=== PATIENT | male | born 1950 | race Caucasian/White ===

== ENCOUNTER 2019-11-10 11:27 | Emergency (ER) | payer OTHER, SELFPAY ==
[2019-11-10] VITALS (9 sets, daily range): BP systolic 86–114; BP diastolic 45–89; PULSE 80–85; RESP 11–18; TEMP 36.6–36.7; O2SAT 92–100; BMI 26.9
--- NOTE | 2019-11-10 | CT_ITS ---
EXAMINATION: CT ABDOMEN AND PELVIS NONCONTRAST CLINICAL INFORMATION: Distention. Evaluate for small bowel obstruction. COMPARISON: CT abdomen and pelvis without and with contrast 10/13/2019, report only, images unavailable. TECHNIQUE: Multidetector volumetric imaging was performed from the superior aspect of the liver through the pubic symphysis without contrast. Sagittal and coronal reformatted images were obtained on the technologist workstation. DOSE LOWERING TECHNIQUES: This CT examination was performed using dose optimization techniques as appropriate, variously including the following: *Automated exposure control *Adjustment of mA and/or kV according to patient size (this includes techniques or standardized protocols for targeted exams where dose is matched to indication/reason for exam; i.e. extremities or head) *Use of iterative reconstruction technique DLP: 632 mGy-cm FINDINGS: LUNG BASES: There are patchy airspace opacities and atelectasis at the bilateral posterior medial bases. Some calcified granulomata are noted right posterior base. Trace fluid right fissure. LIVER, GALLBLADDER, AND BILIARY TREE: The liver is normal in size. There is mild nodular liver surface is noted previously. The parenchyma appears homogeneous. There is no intrahepatic ductal dilatation or visible focal parenchymal lesion. The gallbladder is not well visualized. There is no visible gallstone. Common duct is unremarkable. PANCREAS: Atrophic, otherwise unremarkable. No ductal dilatation or retroperitoneal inflammatory change. SPLEEN: The spleen is enlarged measuring 14.6 cm. Parenchyma is homogeneous. ADRENAL GLANDS: Unremarkable. KIDNEYS AND URETERS: The kidneys are normal in size, shape, and attenuation. No hydronephrosis, hydroureter, or calculi seen. No perinephric stranding. BLADDER: Unremarkable. GASTROINTESTINAL TRACT: There is generalized ascites. No focal loculated fluid collection. There are postsurgical changes with ileocolic anastomosis in region of distal ascending colon. There is small nonobstructing duodenal lipoma third portion as noted previously. There is no bowel obstruction or pneumatosis or free air. No focal inflammatory changes in bowel. Small sliding hiatal hernia. ABDOMINAL WALL: Small infraumbilical ventral hernia containing nonobstructed bowel. LYMPH NODES: No lymphadenopathy. VASCULAR: Unremarkable. PELVIC VISCERA: Unremarkable. OSSEOUS STRUCTURES: There is grade 1-2 spondylolisthesis lumbosacral junction with bilateral L5 spondylolysis and bridging anterior osteophyte. Similar findings noted on prior report. Subchondral cystic changes right anterior medial femoral head. No suspicious bony lesion. IMPRESSION: 1. Generalized ascites. No bowel obstruction or focal inflammatory changes. 2. Nonobstructing bowel containing infra-umbilical ventral hernia. Small nonobstructing duodenal lipoma. 3. Nodular liver/cirrhosis. Splenomegaly, 14.6 cm. 4. Grade 1-2 spondylolisthesis lumbosacral junction with bilateral L5 spondylolysis.
--- NOTE | 2019-11-10 | US_ITS ---
EXAMINATION: ULTRASOUND-GUIDED PARACENTESIS CLINICAL INFORMATION: Ascites COMPARISON: None TECHNIQUE: Procedure and risks and benefits including bleeding, infection and low blood pressure were discussed with the patient and informed consent was obtained. The right lower quadrant was prepped and draped in the usual sterile fashion. The skin and soft tissues were anesthetized with 1% lidocaine plain. Using ultrasound guidance and a 5 Lebanese rapid centesis catheter, access to the ascitic fluid was obtained. 5 L of clear yellow fluid was removed. No diagnostic specimen was sent. Patient received intravenous albumin during the procedure. FINDINGS: There is a large amount of ascites. IMPRESSION: Ultrasound-guided paracentesis.
--- NOTE | 2019-11-10 12:26 | ED_ITS ---
HPI - Abdominal Pain General Chief Complaint: Abdominal Pain Stated Complaint: Fluid in Abdomen Time Seen by Provider: 11/10/19 12:24 Source: patient, EMS and old records reviewed Mode of arrival: EMS Limitations: other (mild confusion) History of Present Illness HPI narrative: pateint with cirrhosis sent by SNF for paracentesis the patient has confusion from recent events and likely chronic encephalopathy, denies pain MD elicited complaint: other (here for ascites) Pertinent past history: other (known cirrhotic with hx of ascites sent over for paracentesis) Onset (ago): day(s) (few days ago) Location: diffuse Severity: mild Related Data Home Medications Medication Instructions Recorded Confirmed Lasix 11/10/19 dronedarone 11/10/19 lactulose 11/10/19 midodrine 11/10/19 potassium chloride 11/10/19 Allergies Allergy/AdvReac Type Severity Reaction Status Date / Time codeine [CODEINE] AdvReac Intermediate GI PAIN, Verified 11/10/19 14:38 abd pain Codeine Sulfate AdvReac Unknown stomach Uncoded 11/10/19 14:38 pains Review of Systems Review of Systems Constitutional : No Weight loss, No Fever, No Chills ENT/Mouth : No sore throat, No Rhinorrhea Eyes: No Eye Pain, No Swelling Cardiovascular : No Chest Pain, No SOB Respiratory : No Cough, No Sputum Gastrointestinal : No Nausea, No Vomiting, positive Diarrhea, No Constipation, No abdominal Pain Genitourinary : No Urinary Frequency, No Hematuria, Musculoskeletal : No joint pain, No Myalgias, No Joint Swelling Skin : No Skin Lesions, No rash Neuro : No Weakness, No Numbness Psych : No Anxiety/Panic, No Depression Heme/Lymph: positive Bruising, No Bleeding Endocrine : No Polyuria, No Polydipsia Physical Exam Vital Signs and I&O and Narrative: Vital Signs and I&O: Vital Signs Temp 98.0 F 11/10/19 12:02 Pulse 82 11/10/19 14:47 Resp 16 11/10/19 14:47 BP 103/62 11/10/19 14:47 Pulse Ox 97 11/10/19 14:47 Intake & Output 11/09/19 11/10/19 11/10/19 18:59 06:59 18:59 Intake Total 500 / 500 Balance 500 / 500 Weight 80.377 kg Intake: Intake, IV Amoun t 500 / 500 0.9 % Sodium C hloride 500 ml @ 500 / 500 1000 mls/hr IV .Q30M [facility] Rx#: [id number] Body Mass Index 26.9 Const: General: cooperative and no acute distress Nutritional Appearance: malnourished Orientation/consciousness: oriented to person, oriented to place and No oriented to time HENMT: Head: Yes normal to inspection Face and sinus: Yes normal facial exam Eyes: Eyelids: Yes eyelids normal Pupils: Equal, round and reactive pupils present Neck: Neck: Yes normal visual inspection and Yes trachea midline Chest: Chest palpation & inspection: normal inspection of the chest Resp: Effort & Inspection: normal respiratory effort and no respiratory distress Auscultation: clear to auscultation bilaterally Cardio: Rate: regular rate Rhythm: regular rhythm GI: Palpation (GI): Soft to palpation, nontender and Ascites present (large) Skin: General skin exam: no rashes or lesions noted Neuro: General: oriented to person, oriented to place and No oriented to time Cranial nerves: Yes CN's II-XII intact bilaterally and Yes Equal, round and reactive pupils present Motor exam (neuro): 5/5 motor strength present throughout Sensory Exam: Normal double simultaneous stimulation for sensation Extrem: General: Yes normal to inspection Psych: Speech and movement: Normal speech and movement present Course Reevaluation(s) Reevaluation #1: labs at baseline at IR receiving paracentesis, albumin was ordered has no pain doubt SBP Reevaluation #2: patient had 5L taken off BP soft after shift, PO midodrine and repeat albumin ordered MDM - Abdominal Pain MDM Narrative Medical decision making narrative: patient with cirrhosis and known ascites other than loose stools he has no complaints, states he might have obstruction, EMS notes he was sent for paracentesis, at this time will obtain labs, paracentesis, CT scan to r/o obstruction, dispo per results and findings Lab Data Result diagrams: 11/10/19 13:27 11/10/19 13:27 Labs: Lab Results 11/10/19 11/10/19 11/10/19 Range/Units 13:27 13:27 13:27 WBC 4.2 L (4.8-10.8) X10*3/uL RBC 3.95 L (4.60-5.80) X10*6/uL Hgb 13.4 L (14.0-18.0) g/dl Hct 39.4 L (42-52) % MCV 99.7 H (80-98) fL MCH 33.9 H (27.0-33.0) pg MCHC 34.0 (31.0-36.0) g/dl RDW 14.8 (11.0-16.0) % Plt Count 62 L (160-400) X10*3/uL MPV 9.4 (9.4-12.4) fL Immature Gran % (Auto) 0.5 H (0.0-0.4) % Neut % (Auto) 59.8 (45-73) % Lymph % (Auto) 27.0 (20-40) % [place] % (Auto) 10.3 (2-11) % Eos % (Auto) 1.7 (0-4) % Baso % (Auto) 0.7 (0-2) % Neut # (Auto) 2.5 (2.0-8.3) X10*3/uL Lymph # (Auto) 1.1 L (1.2-4.9) X10*3/uL [place] # (Auto) 0.4 (0.1-1.2) X10*3/uL Eos # (Auto) 0.1 (0.0-0.4) X10*3/uL Baso # (Auto) 0.0 (0.0-0.2) X10*3/uL Abs Immat Gran (auto) 0.02 (0.00-0.03) X10*3/uL Absolute Nucleated RBC 0.000 (0.0-0.012) X10*3/uL Nucleated RBC % (auto) 0.0 (0.0-0.2) /100WBC PT (10.8-13.0) SEC INR (0.9-1.1) APTT (24.1-38.0) SEC Sodium 133 L (135-145) mmol/L Potassium 3.4 (3.3-5.1) mmol/l Chloride 99 (96-108) mmol/L Carbon Dioxide 26 (22-29) mmol/L Anion Gap 11 L (12-20) BUN 6 L (9-16) mg/dL Creatinine 0.77 (0.5-1.4) mg/dL Estim Creat Clear Calc 87.5 Estimated GFR > 60 Random Glucose 143 H (60-115) mg/dL Lactic Acid 1.9 (0.5-2.0) mmol/L Calcium 8.4 (8.4-10.2) mg/dL Magnesium (1.6-2.6) mg/dL Total Bilirubin 3.0 H (0.0-1.0) mg/dL Direct Bilirubin 1.7 H (0.0-0.5) mg/dL AST 25 (5-37) U/L ALT 11 (0-40) U/L Alkaline Phosphatase 129 H (39-117) U/L Ammonia (13-55) umol/L Total Protein 5.6 L (6.5-8.0) g/dL Albumin 2.9 L (3.5-5.0) g/dL Lipase 18 (8-78) U/L Urine Color Urine Appearance Urine pH (5.0-8.0) Ur Specific [place] (1.005-1.025) Urine Protein (NEG-TRACE) MG/DL Urine Glucose (UA) (NEG) MG/DL Urine Ketones (NEG) MG/DL Urine Blood (NEG) Urine Nitrite (NEG) Ur Leukocyte Esterase (NEG) 11/10/19 11/10/19 11/10/19 Range/Units 13:27 13:27 13:27 WBC (4.8-10.8) X10*3/uL RBC (4.60-5.80) X10*6/uL Hgb (14.0-18.0) g/dl Hct (42-52) % MCV (80-98) fL MCH (27.0-33.0) pg MCHC (31.0-36.0) g/dl RDW (11.0-16.0) % Plt Count (160-400) X10*3/uL MPV (9.4-12.4) fL Immature Gran % (Auto) (0.0-0.4) % Neut % (Auto) (45-73) % Lymph % (Auto) (20-40) % [place] % (Auto) (2-11) % Eos % (Auto) (0-4) % Baso % (Auto) (0-2) % Neut # (Auto) (2.0-8.3) X10*3/uL Lymph # (Auto) (1.2-4.9) X10*3/uL [place] # (Auto) (0.1-1.2) X10*3/uL Eos # (Auto) (0.0-0.4) X10*3/uL Baso # (Auto) (0.0-0.2) X10*3/uL Abs Immat Gran (auto) (0.00-0.03) X10*3/uL Absolute Nucleated RBC (0.0-0.012) X10*3/uL Nucleated RBC % (auto) (0.0-0.2) /100WBC PT 15.6 H (10.8-13.0) SEC INR 1.3 H (0.9-1.1) APTT 39.7 H (24.1-38.0) SEC Sodium (135-145) mmol/L Potassium (3.3-5.1) mmol/l Chloride (96-108) mmol/L Carbon Dioxide (22-29) mmol/L Anion Gap (12-20) BUN (9-16) mg/dL Creatinine (0.5-1.4) mg/dL Estim Creat Clear Calc Estimated GFR Random Glucose (60-115) mg/dL Lactic Acid (0.5-2.0) mmol/L Calcium (8.4-10.2) mg/dL Magnesium 1.7 (1.6-2.6) mg/dL Total Bilirubin (0.0-1.0) mg/dL Direct Bilirubin (0.0-0.5) mg/dL AST (5-37) U/L ALT (0-40) U/L Alkaline Phosphatase (39-117) U/L Ammonia 35 (13-55) umol/L Total Protein (6.5-8.0) g/dL Albumin (3.5-5.0) g/dL Lipase (8-78) U/L Urine Color Urine Appearance Urine pH (5.0-8.0) Ur Specific [place] (1.005-1.025) Urine Protein (NEG-TRACE) MG/DL Urine Glucose (UA) (NEG) MG/DL Urine Ketones (NEG) MG/DL Urine Blood (NEG) Urine Nitrite (NEG) Ur Leukocyte Esterase (NEG) 11/10/19 Range/Units 13:54 WBC (4.8-10.8) X10*3/uL RBC (4.60-5.80) X10*6/uL Hgb (14.0-18.0) g/dl Hct (42-52) % MCV (80-98) fL MCH (27.0-33.0) pg MCHC (31.0-36.0) g/dl RDW (11.0-16.0) % Plt Count (160-400) X10*3/uL MPV (9.4-12.4) fL Immature Gran % (Auto) (0.0-0.4) % Neut % (Auto) (45-73) % Lymph % (Auto) (20-40) % [place] % (Auto) (2-11) % Eos % (Auto) (0-4) % Baso % (Auto) (0-2) % Neut # (Auto) (2.0-8.3) X10*3/uL Lymph # (Auto) (1.2-4.9) X10*3/uL [place] # (Auto) (0.1-1.2) X10*3/uL Eos # (Auto) (0.0-0.4) X10*3/uL Baso # (Auto) (0.0-0.2) X10*3/uL Abs Immat Gran (auto) (0.00-0.03) X10*3/uL Absolute Nucleated RBC (0.0-0.012) X10*3/uL Nucleated RBC % (auto) (0.0-0.2) /100WBC PT (10.8-13.0) SEC INR (0.9-1.1) APTT (24.1-38.0) SEC Sodium (135-145) mmol/L Potassium (3.3-5.1) mmol/l Chloride (96-108) mmol/L Carbon Dioxide (22-29) mmol/L Anion Gap (12-20) BUN (9-16) mg/dL Creatinine (0.5-1.4) mg/dL Estim Creat Clear Calc Estimated GFR Random Glucose (60-115) mg/dL Lactic Acid (0.5-2.0) mmol/L Calcium (8.4-10.2) mg/dL Magnesium (1.6-2.6) mg/dL Total Bilirubin (0.0-1.0) mg/dL Direct Bilirubin (0.0-0.5) mg/dL AST (5-37) U/L ALT (0-40) U/L Alkaline Phosphatase (39-117) U/L Ammonia (13-55) umol/L Total Protein (6.5-8.0) g/dL Albumin (3.5-5.0) g/dL Lipase (8-78) U/L Urine Color YELLOW Urine Appearance CLEAR Urine pH 5.5 (5.0-8.0) Ur Specific [place] 1.015 (1.005-1.025) Urine Protein NEG (NEG-TRACE) MG/DL Urine Glucose (UA) NEG (NEG) MG/DL Urine Ketones NEG (NEG) MG/DL Urine Blood NEG (NEG) Urine Nitrite NEG (NEG) Ur Leukocyte Esterase NEG (NEG) Discharge Plan Discharge Clinical Impression: S/P abdominal paracentesis Ascites Qualifiers: Ascites type: due to alcoholic cirrhosis Qualified Code(s): K70.31 - Alcoholic cirrhosis of liver with ascites Patient Disposition: Xfer [facility] Instructions: Ascites (ED), Paracentesis (DC) Prescriptions: No Action Lasix RF: 0 dronedarone RF: 0 lactulose RF: 0 midodrine RF: 0 potassium chloride RF: 0 PMFSH Past Medical History Attestation statement: The following information was validated with the patient. Medical History Alcohol abuse Dysphagia Liver cirrhosis Muscle atrophy Osteoarthritis Social History Social History Alcohol intake: former Smoked in Last 30 Days: No Use of substances other than those prescribed or required for medical reasons: No Advance Directives: No Advance Directives Information Provided: No
[2019-11-10 13:43] LABS: Basophils Percent Auto 0.7 % (0-2); Eosinophils Absolute Auto 0.1 X10*3/uL (0.0-0.4); Eosinophils Percent Auto 1.7 % (0-4); Hematocrit 39.4 % (42-52); Hemoglobin 13.4 g/dl (14.0-18.0); Imm Gran Abs Auto 0.02 X10*3/uL (0.00-0.03); Imm Gran Pct Auto 0.5 % (0.0-0.4); Lymphocytes Absolute Auto 1.1 X10*3/uL (1.2-4.9); MANUAL DIFF FLAG NO; Mean Corpuscular Hemoglobin 33.9 pg (27.0-33.0); Mean Corpuscular Volume 99.7 fL (80-98); Mean Platelet Volume 9.4 fL (9.4-12.4); Monocytes Absolute Auto 0.4 X10*3/uL (0.1-1.2); Monocytes Percent Auto 10.3 % (2-11); Neutrophils Absolute Auto 2.5 X10*3/uL (2.0-8.3); Neutrophils Percent Auto 59.8 % (45-73); Red Blood Count 3.95 X10*6/uL (4.60-5.80); Red Cell Distribution Width 14.8 % (11.0-16.0); White Blood Count 4.2 X10*3/uL (4.8-10.8)
[2019-11-10 13:59] LABS: Ammonia 35 umol/L (13-55)
[2019-11-10 14:04] LABS: Lactic Acid 1.9 mmol/L (0.5-2.0)
[2019-11-10 14:08] LABS: Platelet Count 62 X10*3/uL (160-400)
[2019-11-10] MEDS: 0.9 % Sodium Chloride 500 ML 1000 ML IV (14:11)
[2019-11-10] MEDS: ondansetron HCL 4 MG/2 ML VIAL IVPUSH (14:11)
--- NOTE | 2019-11-10 14:14 | PC.NURSE ---
ALBUMIN TO BE HELD UNTIL PT ABOUT TO HAVE PARCENTESIS PER DR GU. ZOFRAN GIVEN AND NS 500ML BOLUS STARTED
[2019-11-10 14:17] LABS: Alanine Aminotransferase 11 U/L (0-40); Albumin Level 2.9 g/dL (3.5-5.0); Alkaline Phosphatase 129 U/L (39-117); Anion Gap 11 (12-20); Aspartate Amino Transferase 25 U/L (5-37); Bilirubin Direct 1.7 mg/dL (0.0-0.5); Blood Urea Nitrogen 6 mg/dL (9-16); Calcium 8.4 mg/dL (8.4-10.2); Carbon Dioxide 26 mmol/L (22-29); Chloride 99 mmol/L (96-108); Creatinine Clr Calc Pharmacy 87.5; Estimated Glomerular Filt Rate > 60; Glucose Random 143 mg/dL (60-115); Lipase 18 U/L (8-78); Magnesium 1.7 mg/dL (1.6-2.6); Potassium 3.4 mmol/l (3.3-5.1); Sodium 133 mmol/L (135-145); Total Protein 5.6 g/dL (6.5-8.0)
[2019-11-10 14:24] LABS: Glucose Urine UA NEG (NEG); Leukocyte Esterase Urine NEG (NEG); Nitrite Urine NEG (NEG); PH 5.5 (5.0-8.0); Specific Gravity - Urine 1.015 (1.005-1.025); Urine Blood NEG (NEG); Urine Ketones NEG (NEG); Urine Protein NEG (NEG-TRACE)
[2019-11-10 14:28] LABS: INTERNATIONAL NORM RATIO 1.3 (0.9-1.1); Prothrombin Time 15.6 SEC (10.8-13.0)
[2019-11-10 14:29] LABS: Appearance Urine CLEAR; Color Urine YELLOW
[2019-11-10 14:31] LABS: Partial Thromboplastin Time 39.7 SEC (24.1-38.0)
[2019-11-10] MEDS: Albumin Human 25 % 100 ML IV ×2 (14:57→16:14)
[2019-11-10] MEDS: Lidocaine HCl 1 % 20 ML VIAL 5 ML SUBCUT (15:04)
[2019-11-10] MEDS: Midodrine HCl 5 MG TABLET PO (16:14)
--- NOTE | 2019-11-10 16:38 | PC.NURSE ---
Provider aware of RR and sat trends.
== END 2019-11-10 19:57 | disposition skilled nursing facility (03) ==
PROVIDERS: Emergency Provider Emergency Medicine; PCP Internal Medicine
DX: K70.31 Alcoholic cirrhosis of liver with ascites (principal); F10.20 Alcohol dependence, uncomplicated
CPT/HCPCS: 36415; 49083; 74176; 80048; 80076; 81003; 82140; 83605; 83690; 83735; 85025; 85610; 85730; 87040; 96365; 96375; 99284; 99285; P9047

== ENCOUNTER 2019-11-14 | Outpatient (REF) | payer OTHER, SELFPAY ==
[2019-11-14 07:55] LABS: Hemoglobin 11.1 g/dl (14.0-18.0); Mean Corpuscular HGB Conc 33.6 g/dl (31.0-36.0); Mean Corpuscular Hemoglobin 33.3 pg (27.0-33.0); Mean Corpuscular Volume 99.1 fL (80-98); Mean Platelet Volume 9.2 fL (9.4-12.4); Red Blood Count 3.33 X10*6/uL (4.60-5.80); Red Cell Distribution Width 14.4 % (11.0-16.0); White Blood Count 5.1 X10*3/uL (4.8-10.8)
[2019-11-14 07:57] LABS: Platelet Count 68 X10*3/uL (160-400)
[2019-11-14 08:20] LABS: Anion Gap 11 (12-20); Blood Urea Nitrogen 7 mg/dL (9-16); Calcium 8.1 mg/dL (8.4-10.2); Carbon Dioxide 25 mmol/L (22-29); Chloride 100 mmol/L (96-108); Estimated Glomerular Filt Rate > 60; Glucose Random 85 mg/dL (60-115); Potassium 3.1 mmol/l (3.3-5.1); Sodium 133 mmol/L (135-145)
== END 2019-11-14 00:01 | disposition home or self-care (01) ==
LOC: HO.MMNH1L
PROVIDERS: Visit Provider Family Medicine
DX: I48.92 Unspecified atrial flutter (principal); K92.2 Gastrointestinal hemorrhage, unspecified; K74.60 Unspecified cirrhosis of liver
CPT/HCPCS: 36415; 80048; 85027

== ENCOUNTER 2019-11-21 | Outpatient (REF) | payer OTHER, SELFPAY ==
[2019-11-21 06:22] LABS: Hematocrit 32.8 % (42-52); Hemoglobin 11.3 g/dl (14.0-18.0); Mean Corpuscular HGB Conc 34.5 g/dl (31.0-36.0); Mean Corpuscular Hemoglobin 33.1 pg (27.0-33.0); Mean Corpuscular Volume 96.2 fL (80-98); Mean Platelet Volume 9.1 fL (9.4-12.4); Platelet Count 91 X10*3/uL (160-400); Red Blood Count 3.41 X10*6/uL (4.60-5.80); Red Cell Distribution Width 13.7 % (11.0-16.0); White Blood Count 5.1 X10*3/uL (4.8-10.8)
[2019-11-21 08:14] LABS: Anion Gap 11 (12-20); Blood Urea Nitrogen 6 mg/dL (9-16); Calcium 7.9 mg/dL (8.4-10.2); Carbon Dioxide 25 mmol/L (22-29); Chloride 99 mmol/L (96-108); Estimated Glomerular Filt Rate > 60; Glucose Random 101 mg/dL (60-115); Potassium 2.8 mmol/l (3.3-5.1); Sodium 132 mmol/L (135-145)
== END 2019-11-21 00:01 | disposition home or self-care (01) ==
LOC: HO.MMNH1L
PROVIDERS: Visit Provider Family Medicine
DX: I48.92 Unspecified atrial flutter (principal); K92.2 Gastrointestinal hemorrhage, unspecified; K74.60 Unspecified cirrhosis of liver
CPT/HCPCS: 36415; 80048; 85027

== ENCOUNTER 2019-12-20 16:36 | Outpatient (REF) | payer OTHER, SELFPAY ==
[2019-12-20 16:41] LABS: MANUAL DIFF FLAG NO
[2019-12-20 16:46] LABS: Basophils Percent Auto 0.8 % (0-2); Eosinophils Percent Auto 0.6 % (0-4); Hematocrit 32.7 % (42-52); Hemoglobin 11.4 g/dl (14.0-18.0); Imm Gran Abs Auto 0.02 X10*3/uL (0.00-0.03); Imm Gran Pct Auto 0.4 % (0.0-0.4); Lymphocytes Absolute Auto 1.1 X10*3/uL (1.2-4.9); Lymphocytes Percent Auto 22.1 % (20-40); Mean Corpuscular HGB Conc 34.9 g/dl (31.0-36.0); Mean Corpuscular Hemoglobin 32.6 pg (27.0-33.0); Mean Corpuscular Volume 93.4 fL (80-98); Mean Platelet Volume 9.1 fL (9.4-12.4); Monocytes Absolute Auto 0.5 X10*3/uL (0.1-1.2); Monocytes Percent Auto 10.5 % (2-11); Neutrophils Absolute Auto 3.2 X10*3/uL (2.0-8.3); Neutrophils Percent Auto 65.6 % (45-73); Platelet Count 100 X10*3/uL (160-400); Red Cell Distribution Width 13.5 % (11.0-16.0); White Blood Count 4.9 X10*3/uL (4.8-10.8)
[2019-12-20 17:13] LABS: Alanine Aminotransferase 16 U/L (0-40); Albumin Level 2.6 g/dL (3.5-5.0); Alkaline Phosphatase 120 U/L (39-117); Anion Gap 12 (12-20); Aspartate Amino Transferase 39 U/L (5-37); Bilirubin Direct 1.6 mg/dL (0.0-0.5); Bilirubin Total 2.7 mg/dL (0.0-1.0); Blood Urea Nitrogen 12 mg/dL (9-16); Calcium 8.5 mg/dL (8.4-10.2); Carbon Dioxide 29 mmol/L (22-29); Chloride 96 mmol/L (96-108); Estimated Glomerular Filt Rate > 60; Glucose Random 126 mg/dL (60-115); Potassium 3.6 mmol/l (3.3-5.1); Sodium 133 mmol/L (135-145)
[2019-12-20 17:16] LABS: B Type Natriuretic Peptide 216 pg/mL (<100)
[2019-12-22 09:06] LABS: HBc Num1 0.24 S/CO (0.00-0.79); HBsAGNum1 0.22 S/CO (0.00-0.99); Hepatitis B Core Antibody Nonreactive (Nonreactive); Hepatitis B Surface Antigen Negative (Negative); ~HepC Num1 0.09 S/CO (0.00-0.79); ~Hepatitis B Surface Antibody NONREACTIVE (Nonreactive); ~Hepatitis C Antibody Nonreactive (Nonreactive)
[2019-12-22 09:25] LABS: Hepatitis A Antibody IgM 0.13 Index (0-0.79); ~Hepatitis A Antibody IgM Nonreactive (Nonreactive)
== END 2019-12-20 16:37 | disposition home or self-care (01) ==
LOC: HO.LNP 16:36
PROVIDERS: Visit Provider Internal Medicine
DX: K74.60 Unspecified cirrhosis of liver (principal); I95.9 Hypotension, unspecified
CPT/HCPCS: 36415; 80048; 80076; 83880; 85025; 86704; 86706; 86709; 86803; 87340

== ENCOUNTER 2019-12-22 13:39 | Inpatient (IN) | payer OTHER, SELFPAY ==
[2019-12-22] VITALS (12 sets, daily range): BP systolic 91–109; BP diastolic 45–70; PULSE 80–98; RESP 18–20; TEMP 36.3–37.2; O2SAT 92–97; BMI 23.2
--- NOTE | 2019-12-22 13:58 | ECG_ITS ---
Test Reason : WEAKNESS Blood Pressure : / mmHG Vent. Rate : 085 BPM Atrial Rate : 085 BPM P-R Int : 158 ms QRS Dur : 078 ms QT Int : 430 ms P-R-T Axes : 066 054 063 degrees QTc Int : 511 ms Normal sinus rhythm Low voltage QRS Nonspecific ST abnormality Abnormal ECG When compared with ECG of 19-OCT-2019 19:47, Normal sinus rhythm has replaced Atrial fibrillation Nonspecific T wave abnormality, improved in Anterolateral leads Nonspecific ST abnormality Inferior leads is new Referred By: Linda Godoy Electronically Signed By:JOSE C GARCIA MD
--- NOTE | 2019-12-22 14:01 | ED_ITS ---
HPI - GI Bleed General Chief complaint: GI Bleed Stated complaint: Black Tarry stool Time Seen by Provider: 12/22/19 13:50 Source: patient, EMS and old records reviewed Mode of arrival: EMS Limitations: no limitations History of Present Illness MD complaint: melena Onset (ago): day(s) (3) Relieving factors: none Exacerbating factors: none Context: history of GI bleed, liver disease, known esophageal varices and other (took 3 doses of excedrin to sleep recently) Associated symptoms: denies other symptoms Treatments Prior to Arrival: none Related Data Home Medications Medication Instructions Recorded Confirmed dronedarone 400 mg tablet 400 mg PO BID 12/15/19 12/22/19 midodrine 10 mg tablet 10 mg PO TID tab 12/15/19 12/22/19 ondansetron HCl 4 mg tablet 4 mg PO Q6H PRN 12/15/19 12/22/19 lactulose [Generlac] 20 g PO BID PRN 12/22/19 12/22/19 Previous Rx's Medication Instructions Recorded miscellaneous medical supply #1 ea 12/13/19 comp.stocking,knee,long,medium #12 ea 12/15/19 Allergies Allergy/AdvReac Type Severity Reaction Status Date / Time codeine [CODEINE] AdvReac Intermediate GI PAIN, Verified 12/15/19 15:57 abd pain Codeine Sulfate AdvReac Mild stomach Uncoded 12/22/19 14:03 pains Review of Systems Review of Systems: Constitutional : No Weight loss, No Fever, No Chills ENT/Mouth : No sore throat, No Rhinorrhea Eyes: No Swelling, No Redness Cardiovascular : No Chest Pain, No SOB, NoEdema Respiratory : No Cough, No Sputum, No Wheezing Gastrointestinal : no Nausea, no Vomiting, no Diarrhea, no abdominal Pain, No Hematochezia, pos Melena Genitourinary : No Dysuria, No Urinary Frequency, No Hematuria, No Urgency Musculoskeletal : No joint pain, No Myalgias, No Joint Swelling Skin : No Skin Lesions, No rash Neuro : No Weakness, No Numbness, No Dizziness, No Headache Psych : No Anxiety/Panic, No Depression Heme/Lymph: No Bruising, No Lymphadenopathy Endocrine : No Polyuria, No Polydipsia All other systems reviewed and are negative. [facility] Past Medical History Attestation statement: The following information was validated with the patient. Medical History Alcohol abuse Dysphagia Liver cirrhosis Muscle atrophy Osteoarthritis Social History Social History Alcohol intake: former Smoking Status: Never smoker Use of substances other than those prescribed or required for medical reasons: No Advance Directives: No Advance Directives Information Provided: No Physical Exam Vital Signs: Vital Signs: Last Vital Signs Temp 97.9 F 12/22/19 15:02 Pulse 89 12/22/19 15:02 Resp 19 12/22/19 15:02 BP 101/60 12/22/19 15:02 Pulse Ox 95 12/22/19 13:57 Body Mass Index 23.2 Appearance: Alert. Oriented X3. No acute distress. Eyes: Pupils equal, round and reactive to light. ENT: Pharynx normal. Neck: Normal inspection. Neck supple. CVS: Normal heart rate and rhythm. Pulses normal. Respiratory: No respiratory distress. Breath sounds normal. Abdomen: Soft and nontender. + moderate ascites, black stool noted in rectal vault Skin: Skin warm and dry. pale skin color. poor skin turgor. Extremities: No lower extremity edema. No calf ttp Neuro: Oriented X 3. No motor deficit. No sensory deficit. Course Course Course Narrative: after discussion with - no central line or pressors, DNR/DNI no ICU stays, no heroic measures, transfuse if he wishes will give 2 UFFP as well for INR 5 - planned admit, lactic acidosis and lab abnormalities (elevated bili) due to cirrhosis and not infection or severe sepsis MDM - GI Bleed MDM Narrative Medical decision making narrative: 69 yo male with hx of liver cirrhosis prior GIB but endo from this summer did not show varices at this time used excedrin to sleep x 3 days now with 1 to 2 black stools reported daily x 3 days, will start on fluids, albumin, protonix gtt, no pain, planned admit - the patient is not toxic at this time and BP is low due to liver failure and not infection or severe sepsis. Lab Data Result diagrams: 12/22/19 14:32 12/22/19 14:32 Labs: Lab Results 11/12/20 11/12/20 11/12/20 Range/Units 14:32 14:32 14:32 WBC 4.9 (4.8-10.8) X10*3/uL RBC 3.38 L (4.60-5.80) X10*6/uL Hgb 10.9 L (14.0-18.0) g/dl Hct 31.9 L (42-52) % MCV 94.4 (80-98) fL MCH 32.2 (27.0-33.0) pg MCHC 34.2 (31.0-36.0) g/dl RDW 14.0 (11.0-16.0) % Plt Count 110 L (160-400) X10*3/uL MPV 9.2 L (9.4-12.4) fL Immature Gran % (Auto) 0.2 (0.0-0.4) % Neut % (Auto) 61.2 (45-73) % Lymph % (Auto) 25.5 (20-40) % [place] % (Auto) 11.7 H (2-11) % Eos % (Auto) 0.6 (0-4) % Baso % (Auto) 0.8 (0-2) % Lymph # (Auto) 1.3 (1.2-4.9) X10*3/uL [place] # (Auto) 0.6 (0.1-1.2) X10*3/uL Eos # (Auto) 0.0 (0.0-0.4) X10*3/uL Baso # (Auto) 0.0 (0.0-0.2) X10*3/uL Abs Immat Gran (auto) 0.01 (0.00-0.03) X10*3/uL Absolute Neuts (auto) 3.0 (2.0-8.3) X10*3/uL Absolute Nucleated RBC 0.000 (0.0-0.012) X10*3/uL Nucleated RBC % (auto) 0.0 (0.0-0.2) /100WBC PT 71.7 H D (10.8-13.0) SEC INR 5.9 H* D (0.9-1.1) APTT 58.8 H D (24.1-38.0) SEC Sodium 131 L (135-145) mmol/L Potassium 3.6 (3.3-5.1) mmol/l Chloride 94 L (96-108) mmol/L Carbon Dioxide 29 (22-29) mmol/L Anion Gap 12 (12-20) BUN 13 (9-16) mg/dL Creatinine 0.81 (0.5-1.4) mg/dL Estim Creat Clear Calc 83.2 Estimated GFR > 60 Random Glucose 121 H (60-115) mg/dL Lactic Acid (0.5-2.0) mmol/L Calcium 8.6 (8.4-10.2) mg/dL Magnesium 1.9 (1.6-2.6) mg/dL Total Bilirubin 2.5 H (0.0-1.0) mg/dL Direct Bilirubin 1.5 H (0.0-0.5) mg/dL AST 38 H (5-37) U/L ALT 16 (0-40) U/L Alkaline Phosphatase 120 H (39-117) U/L Ammonia (13-55) umol/L Troponin I High Sens (<3.5-35.0) ng/L Total Protein 5.3 L (6.5-8.0) g/dL Albumin 2.8 L (3.5-5.0) g/dL Lipase 20 (8-78) U/L Stool Occult Blood (NEG) COVID-19 (JOMAR) (Negative) COVID-19 Clin Com Blood Type Antibody Screen 12/22/19 12/22/19 12/22/19 Range/Units 14:32 14:32 14:32 WBC (4.8-10.8) X10*3/uL RBC (4.60-5.80) X10*6/uL Hgb (14.0-18.0) g/dl Hct (42-52) % MCV (80-98) fL MCH (27.0-33.0) pg MCHC (31.0-36.0) g/dl RDW (11.0-16.0) % Plt Count (160-400) X10*3/uL MPV (9.4-12.4) fL Immature Gran % (Auto) (0.0-0.4) % Neut % (Auto) (45-73) % Lymph % (Auto) (20-40) % [place] % (Auto) (2-11) % Eos % (Auto) (0-4) % Baso % (Auto) (0-2) % Lymph # (Auto) (1.2-4.9) X10*3/uL [place] # (Auto) (0.1-1.2) X10*3/uL Eos # (Auto) (0.0-0.4) X10*3/uL Baso # (Auto) (0.0-0.2) X10*3/uL Abs Immat Gran (auto) (0.00-0.03) X10*3/uL Absolute Neuts (auto) (2.0-8.3) X10*3/uL Absolute Nucleated RBC (0.0-0.012) X10*3/uL Nucleated RBC % (auto) (0.0-0.2) /100WBC PT (10.8-13.0) SEC INR (0.9-1.1) APTT (24.1-38.0) SEC Sodium (135-145) mmol/L Potassium (3.3-5.1) mmol/l Chloride (96-108) mmol/L Carbon Dioxide (22-29) mmol/L Anion Gap (12-20) BUN (9-16) mg/dL Creatinine (0.5-1.4) mg/dL Estim Creat Clear Calc Estimated GFR Random Glucose (60-115) mg/dL Lactic Acid 2.9 H* (0.5-2.0) mmol/L Calcium (8.4-10.2) mg/dL Magnesium (1.6-2.6) mg/dL Total Bilirubin (0.0-1.0) mg/dL Direct Bilirubin (0.0-0.5) mg/dL AST (5-37) U/L ALT (0-40) U/L Alkaline Phosphatase (39-117) U/L Ammonia 54 (13-55) umol/L Troponin I High Sens < 3.5 (<3.5-35.0) ng/L Total Protein (6.5-8.0) g/dL Albumin (3.5-5.0) g/dL Lipase (8-78) U/L Stool Occult Blood (NEG) COVID-19 (JOMAR) (Negative) COVID-19 Clin Com Blood Type Antibody Screen 12/22/19 12/22/19 12/22/19 Range/Units 14:33 14:45 14:45 WBC (4.8-10.8) X10*3/uL RBC (4.60-5.80) X10*6/uL Hgb (14.0-18.0) g/dl Hct (42-52) % MCV (80-98) fL MCH (27.0-33.0) pg MCHC (31.0-36.0) g/dl RDW (11.0-16.0) % Plt Count (160-400) X10*3/uL MPV (9.4-12.4) fL Immature Gran % (Auto) (0.0-0.4) % Neut % (Auto) (45-73) % Lymph % (Auto) (20-40) % [place] % (Auto) (2-11) % Eos % (Auto) (0-4) % Baso % (Auto) (0-2) % Lymph # (Auto) (1.2-4.9) X10*3/uL [place] # (Auto) (0.1-1.2) X10*3/uL Eos # (Auto) (0.0-0.4) X10*3/uL Baso # (Auto) (0.0-0.2) X10*3/uL Abs Immat Gran (auto) (0.00-0.03) X10*3/uL Absolute Neuts (auto) (2.0-8.3) X10*3/uL Absolute Nucleated RBC (0.0-0.012) X10*3/uL Nucleated RBC % (auto) (0.0-0.2) /100WBC PT (10.8-13.0) SEC INR (0.9-1.1) APTT (24.1-38.0) SEC Sodium (135-145) mmol/L Potassium (3.3-5.1) mmol/l Chloride (96-108) mmol/L Carbon Dioxide (22-29) mmol/L Anion Gap (12-20) BUN (9-16) mg/dL Creatinine (0.5-1.4) mg/dL Estim Creat Clear Calc Estimated GFR Random Glucose (60-115) mg/dL Lactic Acid (0.5-2.0) mmol/L Calcium (8.4-10.2) mg/dL Magnesium (1.6-2.6) mg/dL Total Bilirubin (0.0-1.0) mg/dL Direct Bilirubin (0.0-0.5) mg/dL AST (5-37) U/L ALT (0-40) U/L Alkaline Phosphatase (39-117) U/L Ammonia (13-55) umol/L Troponin I High Sens (<3.5-35.0) ng/L Total Protein (6.5-8.0) g/dL Albumin (3.5-5.0) g/dL Lipase (8-78) U/L Stool Occult Blood POS (NEG) COVID-19 ([facility]) Negative (Negative) COVID-19 Clin Com See Note Blood Type O Positive Antibody Screen NEGATIVE ECG Data Attestation: I personally reviewed and interpreted this ECG as follows: ECG interpretation date: 12/22/19 ECG interpretation time: 14:09 Interpretation: Rate: 85 Rhythm: NSR [place]: normal Normal P waves. Normal LEON. decreased QRS complex. ST T wave : nonspecific qTC:normal prior studies: artifact noted, no acute ischemia The study has been interpreted contemporaneously by me. . Critical Care Time Critical Care Time Critical Care Time: Yes Total Critical Care Time: 35 Attestation: medical consult, transfusion of FFP, admitted, call to family members I attest to this time spent taking care of the patient Discharge Plan Discharge Clinical Impression: Upper gastrointestinal hemorrhage, Melena, Elevated INR Patient Disposition: Admitted As Inpatient
[2019-12-22 14:39] LABS: MANUAL DIFF FLAG NO
[2019-12-22 14:40] LABS: OBS Int Ctl Valid YES; OBS1 POS (NEG)
[2019-12-22 14:42] LABS: Basophils Percent Auto 0.8 % (0-2); Eosinophils Percent Auto 0.6 % (0-4); Hematocrit 31.9 % (42-52); Hemoglobin 10.9 g/dl (14.0-18.0); Imm Gran Abs Auto 0.01 X10*3/uL (0.00-0.03); Imm Gran Pct Auto 0.2 % (0.0-0.4); Lymphocytes Absolute Auto 1.3 X10*3/uL (1.2-4.9); Lymphocytes Percent Auto 25.5 % (20-40); Mean Corpuscular HGB Conc 34.2 g/dl (31.0-36.0); Mean Corpuscular Hemoglobin 32.2 pg (27.0-33.0); Mean Corpuscular Volume 94.4 fL (80-98); Mean Platelet Volume 9.2 fL (9.4-12.4); Monocytes Absolute Auto 0.6 X10*3/uL (0.1-1.2); Monocytes Percent Auto 11.7 % (2-11); Neutrophils Percent Auto 61.2 % (45-73); Platelet Count 110 X10*3/uL (160-400); Red Blood Count 3.38 X10*6/uL (4.60-5.80); White Blood Count 4.9 X10*3/uL (4.8-10.8)
[2019-12-22] MEDS: Pantoprazole Sodium 40 MG/10 ML VIAL IVPUSH (14:50)
[2019-12-22] MEDS: 0.9 % Sodium Chloride 500 ML IV (14:51)
[2019-12-22] MEDS: Albumin Human 25 % 100 ML IV ×2 (14:51→15:58)
[2019-12-22] MEDS: Phytonadione (Vit K1) 10 MG in 0.9 % Sodium Chloride 50 ML 51 MG IV (14:52)
[2019-12-22 14:54] LABS: Ammonia 54 umol/L (13-55)
--- NOTE | 2019-12-22 14:58 | PC.NURSE ---
ivs inserted, labs drawn, ekg performed, residential monitor applied, vitals obtained, pt medicated per order, covid swab performed, stool occult obtained, will continue to monitor.
[2019-12-22 14:59] LABS: Partial Thromboplastin Time 58.8 SEC (24.1-38.0)
--- NOTE | 2019-12-22 14:59 | MHC.CM.ED ---
Received case management consult from Dr Godoy. Patient came to ER via EMS. EMS stated patient was on hospice. T/W spoke with [facility]. She is not active with their agency. Spoke with patient's HCP/ex , Hellen via telephone at [phone]. Patient was on hospice when he was discharged from the SNF. However, he signed off of hospice and is only receiving VNA from [facility]. Per Berry Macedo wanted patient to sign onto hospice again. At this time, patient is not interested in hospice. Continue to monitor for d/c needs.
[2019-12-22 15:02] LABS: Prothrombin Time 71.7 SEC (10.8-13.0)
[2019-12-22 15:04] LABS: Alanine Aminotransferase 16 U/L (0-40); Albumin Level 2.8 g/dL (3.5-5.0); Alkaline Phosphatase 120 U/L (39-117); Anion Gap 12 (12-20); Aspartate Amino Transferase 38 U/L (5-37); Bilirubin Direct 1.5 mg/dL (0.0-0.5); Bilirubin Total 2.5 mg/dL (0.0-1.0); Blood Urea Nitrogen 13 mg/dL (9-16); Calcium 8.6 mg/dL (8.4-10.2); Carbon Dioxide 29 mmol/L (22-29); Chloride 94 mmol/L (96-108); Creatinine Clr Calc Pharmacy 83.2; Estimated Glomerular Filt Rate > 60; Glucose Random 121 mg/dL (60-115); Lipase 20 U/L (8-78); Magnesium 1.9 mg/dL (1.6-2.6); Potassium 3.6 mmol/l (3.3-5.1); Sodium 131 mmol/L (135-145); Total Protein 5.3 g/dL (6.5-8.0)
[2019-12-22 15:07] LABS: INTERNATIONAL NORM RATIO 5.9 (0.9-1.1); Troponin-I High Sensitivity < 3.5 ng/L (<3.5-35.0)
[2019-12-22 15:12] LABS: Lactic Acid 2.9 mmol/L (0.5-2.0)
[2019-12-22 15:41] LABS: COVID-19 Test Negative (Negative)
[2019-12-22] MEDS: Pantoprazole Sodium 80 MG in 0.9 % Sodium Chloride 80 ML 10 MG IV (15:57)
[2019-12-22 16:37] LABS: Reflex Lactate? Lactic Acid Added
--- NOTE | 2019-12-22 17:02 | PM.IMHP ---
History of Present Illness Date of Service: 12/22/19 <Karen Covarrubias NP - Last Filed: 12/22/19 17:35> Chief Complaint: GI BLEED <Karen Covarrubias NP - Last Filed: 12/22/19 17:35> 69-year-old man presented to the ER with GI bleed. He has a pretty complicated history and was discharged in October of 2019. At that time he was treated in the ICU for GI bleed and treated for hemorrhagic shock and hypoxemia. During that admission he had an urgent EGD demonstrating portal gastropathy. He was transfused multiple units of FFP and packed red blood cells. He developed hypoxemia secondary to fluid overload and continued to have bright red blood per rectum. He was intubated emergently and bleeding scan obtained was negative. 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 He was taken off of anticoagulation because of the GI bleed however continued on Multaq. It was presumed that he had a lower GI bleed at that time his family was not interested in any type of intervention. His acute respiratory failure resolved after being diuresed and his lactulose was restarted and his hepatic encephalopathy improved. Today, he is presenting with several episodes of black stools. He reports that he may have took some Excedrin for sleep yesterday. He denies alcohol use. He denies chest pain, shortness of breath, nausea, vomiting, diarrhea at this time. Hemoglobin no was noted to be 10.9, hematocrit 31.9, platelets a 110, INR 5.9. He received FFP he has and vitamin K in the ER. He was started on IV Protonix. He will be admitted for further management and treatment of GI bleed. <Karen Covarrubias NP - Last Filed: 12/22/19 17:35> Review of Systems Review of Systems: Denies any recent fever chills or decrease in appetite respiratory denies any shortness of breath coverage production cardiovascular is adjustment of any PND or edema gastrointestinal denies any dysphagia abdominal pain nausea vomiting or diarrhea, some abdominal distension. genitourinary denies any dysuria frequency or hematuria musculoskeletal denies any joint pain or swelling neuropsych denies any weakness or seizures all other systems reviewed are negative <Karen Covarrubias NP - Last Filed: 12/22/19 17:35> [facility] Medical History: Medical History Alcohol abuse Atrial fibrillation BPH (benign prostatic hyperplasia) COPD (chronic obstructive pulmonary disease) Diabetes mellitus Dysphagia GI bleed Liver cirrhosis Muscle atrophy Osteoarthritis <Karen Covarrubias NP - Last Filed: 12/22/19 17:35> Family History: Family History (Updated 12/22/19 @ 17:31 by Karen Covarrubias NP) Mother Cardiac disease Father Lung cancer <Karen Covarrubias NP - Last Filed: 12/22/19 17:35> Social History: Social History (Updated 12/22/19 @ 17:32 by Karen Covarrubias NP) Household Members: Caregiver Housing: House Alcohol intake: unknown Smoking Status: Unknown if ever smoked Tobacco Type: Cigarette Second Hand Smoke Exposure: No Use of substances other than those prescribed or required for medical reasons: Unknown Advance Directives: No Advance Directives Information Provided: No service: Yes Current occupational status: retired <Karen Covarrubias NP - Last Filed: 12/22/19 17:35> Meds Allergies/Adverse reactions: Allergies Allergy/AdvReac Type Severity Reaction Status Date / Time codeine [CODEINE] AdvReac Intermediate GI PAIN, Verified 12/15/19 15:57 abd pain Codeine Sulfate AdvReac Mild stomach Uncoded 12/22/19 14:03 pains <Karen Covarrubias NP - Last Filed: 12/22/19 17:35> Home medications: Home Medications Medication Instructions Recorded Confirmed Type dronedarone 400 mg tablet 400 mg PO BID 12/15/19 12/22/19 History midodrine 10 mg tablet 10 mg PO TID tab 12/15/19 12/22/19 History ondansetron HCl 4 mg tablet 4 mg PO Q6H PRN 12/15/19 12/22/19 History lactulose [Generlac] 20 g PO BID PRN 12/22/19 12/22/19 History <Karen Covarrubias NP - Last Filed: 12/22/19 17:35> Physical Exam Vital Signs and Narrative: Vital Signs: Last Vital Signs Temp 97.9 F 12/22/19 15:02 Pulse 89 12/22/19 15:02 Resp 19 12/22/19 15:02 BP 101/60 12/22/19 15:02 Pulse Ox 95 12/22/19 13:57 Body Mass Index 23.2 <Karen Covarrubias NP - Last Filed: 12/22/19 17:35> Appearing in no acute distress head is normocephalic atraumatic eyes pupils are PERRLA sclera is anicteric mouth throat mucous membranes are intact and moist neck is supple no lymphadenopathy, no JVD noted lung sounds are clear to auscultation heart regular rate rhythm, clear S1, S2 positive bowel sounds, abdomen is soft, nontender neuro patient is alert x3, no focal deficits <Karen Covarrubias NP - Last Filed: 12/22/19 17:35> Results Labs CBC and Chem 7: : 12/24/19 05:56 12/24/19 05:56 <Karen Covarrubias NP - Last Filed: 12/22/19 17:35> Labs: Laboratory Results - last 24 hr 12/22/19 12/22/19 12/22/19 14:32 14:32 14:32 MCV 94.4 MCH 32.2 MCHC 34.2 RDW 14.0 Plt Count 110 L MPV 9.2 L Immature Gran % (Auto) 0.2 Neut % (Auto) 61.2 Lymph % (Auto) 25.5 Atlantic % (Auto) 11.7 H Eos % (Auto) 0.6 Baso % (Auto) 0.8 Lymph # (Auto) 1.3 Atlantic # (Auto) 0.6 Eos # (Auto) 0.0 Baso # (Auto) 0.0 Abs Immat Gran (auto) 0.01 Absolute Neuts (auto) 3.0 Absolute Nucleated RBC 0.000 Nucleated RBC % (auto) 0.0 PT 71.7 H D INR 5.9 H* D APTT 58.8 H D Anion Gap 12 Estim Creat Clear Calc 83.2 Estimated GFR > 60 Random Glucose 121 H Lactic Acid Calcium 8.6 Magnesium 1.9 Total Bilirubin 2.5 H Direct Bilirubin 1.5 H AST 38 H ALT 16 Alkaline Phosphatase 120 H Ammonia Troponin I High Sens Total Protein 5.3 L Albumin 2.8 L Lipase 20 Stool Occult Blood COVID-19 (JOMAR) COVID-19 Clin Com Blood Type Antibody Screen 12/22/19 12/22/19 12/22/19 14:32 14:32 14:32 MCV MCH MCHC RDW Plt Count MPV Immature Gran % (Auto) Neut % (Auto) Lymph % (Auto) Atlantic % (Auto) Eos % (Auto) Baso % (Auto) Lymph # (Auto) Atlantic # (Auto) Eos # (Auto) Baso # (Auto) Abs Immat Gran (auto) Absolute Neuts (auto) Absolute Nucleated RBC Nucleated RBC % (auto) PT INR APTT Anion Gap Estim Creat Clear Calc Estimated GFR Random Glucose Lactic Acid 2.9 H* Calcium Magnesium Total Bilirubin Direct Bilirubin AST ALT Alkaline Phosphatase Ammonia 54 Troponin I High Sens < 3.5 Total Protein Albumin Lipase Stool Occult Blood COVID-19 (JOMAR) COVID-19 Clin Com Blood Type Antibody Screen 12/22/19 12/22/19 12/22/19 14:33 14:45 14:45 MCV MCH MCHC RDW Plt Count MPV Immature Gran % (Auto) Neut % (Auto) Lymph % (Auto) Atlantic % (Auto) Eos % (Auto) Baso % (Auto) Lymph # (Auto) Atlantic # (Auto) Eos # (Auto) Baso # (Auto) Abs Immat Gran (auto) Absolute Neuts (auto) Absolute Nucleated RBC Nucleated RBC % (auto) PT INR APTT Anion Gap Estim Creat Clear Calc Estimated GFR Random Glucose Lactic Acid Calcium Magnesium Total Bilirubin Direct Bilirubin AST ALT Alkaline Phosphatase Ammonia Troponin I High Sens Total Protein Albumin Lipase Stool Occult Blood POS COVID-19 (JOMAR) Negative COVID-19 Clin Com See Note Blood Type O Positive Antibody Screen NEGATIVE <Karen Covarrubias NP - Last Filed: 12/22/19 17:35> Assessment and Plan (1) Upper gastrointestinal hemorrhage: Status: Resolved <Karen Covarrubias NP - Last Filed: 12/22/19 17:35> 69-year-old man admitted with GI bleed With history of alcoholic liver cirrhosis with varices. patient is a DNR / DNI. He reported that he is willing to have a blood transfusion however , he does not want any aggressive treatment including transfer/ admission to the ICU for pressors or intubation. GI bleed. Patient with history alcoholic liver cirrhosis and varices. H&H is stable this time. Will recheck this evening. Transfuse if necessary, type and screen. GI to follow. Continue IV Protonix. Coagulopathy. Related to chronic liver disease. Received FFP and vitamin K in the ER. Will check PT INR daily. Hypotension/orthostatic hypotension. Chronic. Continue midodrine. Hyponatremia. Man some ascites, has chronic lower extremity edema. Likely due to hypovolemia, hold IV fluids. Man some point need a blood transfusion if found to be anemic. History of atrial fibrillation. Not on anticoagulation due to GI bleed and complications. Continue on Multaq. case monitor. COPD. No exacerbation. History of CHF. No exacerbation. Avoid over-hydration. Protein calorie malnutrition. Will add Ensure to diet. DVT prophylaxis with mechanical compression boots due to GI bleed Case discussed with Dr. Mckeon DNR/DNI <Karen Covarrubias NP - Last Filed: 12/22/19 17:35>
--- NOTE | 2019-12-22 17:17 | P.EN_ITS ---
Event Note Date of Service: 12/22/19 Event Note: 69-year-old gentleman with past medical history significant for a trial fibrillation not on anticoagulation due to history of hemorrhagic shock / GI bleed recently discharged from hospital in October of 2019 requiring ICU level of care, being that hospitalization patient had an urgent upper endoscopy that showed portal gastropathy but no upper GI bleed a CT scan of the abdomen showed cirrhotic liver and large amount of ascites, and diverticular disease which was thought to be the source of his bleeding during that hospitalization, patient currently residing in home with ex who provides the care, patient came to [facility] today since for last 2 days patient has been noted to have black colored stools he has chronic occasional nausea he denies abdominal pain he is chronically distended abdomen, he denies any shortness of breath with ambulation although he admits that he gets dizzy when he stands up. In the emergency room patient is noted to have normal vitals is BP remains on lower side that seems to be chronic, his hematocrit is 31.9 with a hemoglobin of 10, platelet count is 110, patient INR is elevated at 5.9, his renal function is stable, with a total bili of 2.5 and AST of 38 patient is now being admitted to [facility] due to GI bleed seems upper GI bleed, patient admitted that he took 3 doses of Excedrin to sleep recently, patient denies use of alcohol. On examination patient awake alert in no acute distress abdomen is distended nontender bowel sounds are audible extremities mild pitting edema skin multiple ecchymoses assessment and plan GI bleed likely upper GI bleed with history of portal gastropathy with concurrent use of Excedrin and elevated INR will continue treatment with IV Protonix, patient received vitamin K and FFP has been ordered, will follow CBC closely and transfuse to maintain hb around 8 , will consult Gastroenterology chronic hypotension will continue midodrin patient wishes to be DNR DNI and refusing ICU level of care. Atrial fibrillation with stable ventricular rate patient not on anticoagulation due to recent GI bleed will continue Multaq Hypoalbuminemia elevated INR and LFTs consistent with underlying cirrhosis and poor synthetic function of liver will add Ensure can follow INR and repeat vitamin K as needed.
--- NOTE | 2019-12-22 18:02 | PC.NURSE ---
hcp/exwife jazz khan called, she would like to be called when an inpt plan has been put in place her number [phone].
--- NOTE | 2019-12-22 18:15 | PC.NURSE ---
waiting for provider to get blood consent form for FFP
--- NOTE | 2019-12-22 18:33 | PC.NURSE ---
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
--- NOTE | 2019-12-22 18:57 | PC.NURSE ---
Called floor to give report, nursing staff will call us back
[2019-12-22 19:38] LABS: ~Lactic Acid-LAB USE ONLY 1.8 mmol/L (0.5-2.0)
--- NOTE | 2019-12-22 20:57 | PC.NURSE ---
called [facility] again, nursing staff was unaware of admission and will call the ed back
--- NOTE | 2019-12-22 21:22 | PC.NURSE ---
report called to floor
[2019-12-22 22:34] LABS: Hematocrit 27.4 % (42-52); Hemoglobin 9.5 g/dl (14.0-18.0); Mean Corpuscular HGB Conc 34.7 g/dl (31.0-36.0); Mean Corpuscular Hemoglobin 32.6 pg (27.0-33.0); Mean Corpuscular Volume 94.2 fL (80-98); Mean Platelet Volume 8.7 fL (9.4-12.4); Red Blood Count 2.91 X10*6/uL (4.60-5.80); Red Cell Distribution Width 14.1 % (11.0-16.0); White Blood Count 3.9 X10*3/uL (4.8-10.8)
[2019-12-22 22:51] LABS: Platelet Count 79 X10*3/uL (160-400)
[2019-12-22] MEDS: Midodrine HCl 10 MG TABLET PO (23:53)
[2019-12-22] MEDS: Dronedarone HCl 400 MG TABLET PO (23:54)
[2019-12-22] MEDS: 0.9 % Sodium Chloride Flush 3 ML SYRINGE IVFLUSH (23:58)
[2019-12-23] VITALS (10 sets, daily range): BP systolic 85–110; BP diastolic 46–67; PULSE 74–95; RESP 16–20; TEMP 36.3–37; O2SAT 94–99; BMI 23.2
[2019-12-23] MEDS: diphenhydrAMINE HCL 50 MG/ML VIAL 25 MG IVPUSH (00:14)
[2019-12-23] MEDS: Pantoprazole Sodium 80 MG in 0.9 % Sodium Chloride 80 ML 10 MG IV (03:37)
[2019-12-23 06:39] LABS: MANUAL DIFF FLAG NO
[2019-12-23 06:52] LABS: INTERNATIONAL NORM RATIO 3.8 (0.9-1.1)
[2019-12-23 06:56] LABS: Eosinophils Absolute Auto 0.1 X10*3/uL (0.0-0.4); Eosinophils Percent Auto 1.9 % (0-4); Hematocrit 25.6 % (42-52); Hemoglobin 8.8 g/dl (14.0-18.0); Imm Gran Abs Auto 0.02 X10*3/uL (0.00-0.03); Imm Gran Pct Auto 0.6 % (0.0-0.4); Lymphocytes Absolute Auto 0.9 X10*3/uL (1.2-4.9); Lymphocytes Percent Auto 30.5 % (20-40); Mean Corpuscular HGB Conc 34.4 g/dl (31.0-36.0); Mean Corpuscular Hemoglobin 32.8 pg (27.0-33.0); Mean Corpuscular Volume 95.5 fL (80-98); Mean Platelet Volume 9.3 fL (9.4-12.4); Monocytes Absolute Auto 0.4 X10*3/uL (0.1-1.2); Neutrophils Absolute Auto 1.6 X10*3/uL (2.0-8.3); Red Blood Count 2.68 X10*6/uL (4.60-5.80); White Blood Count 3.1 X10*3/uL (4.8-10.8)
[2019-12-23 07:17] LABS: Anion Gap 9 (12-20); Blood Urea Nitrogen 11 mg/dL (9-16); Calcium 8.4 mg/dL (8.4-10.2); Carbon Dioxide 30 mmol/L (22-29); Chloride 99 mmol/L (96-108); Creatinine Clr Calc Pharmacy 87.5; Estimated Glomerular Filt Rate > 60; Glucose Random 107 mg/dL (60-115); Potassium 3.4 mmol/l (3.3-5.1); Sodium 135 mmol/L (135-145)
[2019-12-23 07:33] LABS: Platelet Count 84 X10*3/uL (160-400)
--- NOTE | 2019-12-23 08:01 | P.CDIC_ITS ---
CDI Concurrent Query Service Date: 12/23/19 Documentation Clarification: Please clarify if you are treating a proba ble/suspected/likely or confirmed: Specifics: Mild protein calorie malnutrition Moderate protein calorie malnutrition Severe protein calorie malnutrition Please specify if known Provider Response: Moderate Protein-Calorie Malnutrition Other Diagnosis: moderately malnourished PLEASE DO NOT DELETE/MODIFY EXISTING CONTENT Additional information is needed in order to code to the highest accuracy and appropriate Severity of Illness (SOI). Please clarify the information noted below in your progress notes and discharge summary. Risk Factors/Clinical Indicators/Treatments H&P: Assessment/plan: protein calorie malnutrition Adding Ensure Total protein 5.3 Albumin 2.8 BMI 23.2 CDS: Indigo Sy CCS, CDIS Contact Number: [phone] Please Review the information above and exercise your independent professional judgment in responding to the query. If you concur, pleas document in the PROGRESS NOTES and DISCHARGE SUMMARY. If you do not agree with the query, please document in the query above. THIS QUERY IS PART OF THE PERMANENT MEDICAL RECORD
--- NOTE | 2019-12-23 10:21 | P.CDIC_ITS ---
CDI Concurrent Query Service Date: 12/23/19 Documentation Clarification: Please clarify if you are treating a proba ble/suspected/likely or confirmed: Lactic acidosis Please specify if known or other Provider Response: Other Other Diagnosis: lactic acidosis PLEASE DO NOT DELETE/MODIFY EXISTING CONTENT Additional information is needed in order to code to the highest accuracy and appropriate Severity of Illness (SOI). Please clarify the information noted below in your progress notes and discharge summary. Risk Factors/Clinical Indicators/Treatments Ed: lactic acidosis and lab abnormalties due to cirrhosis and not infection or severe sepsis. LA 2.9 H CDS: Indigo Sy CCS, CDIS Contact Number: [phone] Please Review the information above and exercise your independent professional judgment in responding to the query. If you concur, pleas document in the PROGRESS NOTES and DISCHARGE SUMMARY. If you do not agree with the query, please document in the query above. THIS QUERY IS PART OF THE PERMANENT MEDICAL RECORD
[2019-12-23] MEDS: 0.9 % Sodium Chloride Flush 3 ML SYRINGE IVFLUSH ×3 (11:17→21:03)
[2019-12-23] MEDS: Dronedarone HCl 400 MG TABLET PO ×2 (11:17→21:03)
[2019-12-23] MEDS: Midodrine HCl 10 MG TABLET PO ×3 (11:17→21:02)
[2019-12-23] MEDS: Phytonadione (Vit K1) 5 MG in 0.9 % Sodium Chloride 50 ML 50.5 MG IV (11:31)
--- NOTE | 2019-12-23 12:20 | MHC.CM.PN ---
CM met with patient at the bedside who reports he does need assistance with ADL/IADL's and amb with a walker. Patient lives alone with FCP live in with 24/7 care. Patient also gets VNA services with [facility]. Patient does have a HCP and a MOLST on file. Discussed discharge plan, home with resumption of services from [facility] and 24/7 care. Referral made via allscripts. Patient will need BLS transport. CM will continue to follow patient for discharge needs.
[2019-12-23 12:30] LABS: Hematocrit 28.5 % (42-52); Hemoglobin 9.6 g/dl (14.0-18.0)
--- NOTE | 2019-12-23 13:44 | MHC.CLN ---
PT IS MODERATELY MALNOURISHED RECOMMEND 1800 DM TO CURRENT DIET ORDER WILL START GLUCERNA TID TO INCREASE KCALS SEE ALSO NUTRITION ASSESSMENT
--- NOTE | 2019-12-23 13:47 | HO.PM.IMPN ---
Subjective Subjective Date of Service: 12/24/19 Interval History: patient resting in bed offers no acute complaints had mild dizziness overnight now improved eating breakfast denies abdominal pain no further episodes of black colored stools since arrival to the floor. Review of Systems General no headache , dizziness resolved, no fever chills. CVS no chest pain, no palpitation. Respiratory no cough, no shortness of breath Gastrointestinal no nausea no vomiting, no abdominal pain Physical Exam Vital Signs: Vital Signs: Last Vital Signs Temp 97.9 F 12/23/19 11:54 Pulse 82 12/23/19 11:54 Resp 18 12/23/19 11:54 BP 93/54 L 12/23/19 11:54 Pulse Ox 95 12/23/19 11:54 Body Mass Index 23.2 General patient resting comfortably in no acute distress. Neck supple no JVD. CVS regular rate rhythm, Respiratory lungs clear to auscultation, no respiratory distress Gastrointestinal abdomen soft, nontender, distended, bowel sounds audible Extremities no clubbing, no cyanosis or edema. Neuro nonfocal Objective Data Current Medications Generic Name Dose Route Start Last Admin Trade Name Freq PRN Reason Stop Dose Admin Acetaminophen 650 mg 12/22/19 21:55 Acetaminophen 325 Mg Tablet PO Q6H PRN Pain, Mild (Pain Scale 1-3) Dronedarone 400 mg 12/22/19 21:55 12/23/19 11:17 Dronedarone Hcl 400 Mg Tablet PO 400 mg BID BUZZ Administration Pantoprazole Sodium 80 mg/ 100 mls @ 10 mls/hr 12/22/19 14:00 12/23/19 11:41 Sodium Chloride IV Not Given .Q10H BUZZ 8 MG/HR Lactulose 20 gm 12/22/19 21:55 Lactulose 20 Gm/30 Ml Solution PO BID PRN Constipation Midodrine 10 mg 12/22/19 21:55 12/23/19 11:17 Midodrine Hcl 10 Mg Tablet PO 10 mg TID BUZZ Administration Ondansetron HCl 4 mg 12/22/19 21:55 Ondansetron Hcl 4 Mg/2 Ml Vial IVPUSH Q8H PRN Nausea and Vomiting Pharmacy Consult 1 each 12/22/19 14:00 Consult Rx Perform Med Rec MISCELLANE ONCE PRN Consult order Sodium Chloride 3 ml 12/23/19 00:00 12/23/19 11:17 0.9 % Sodium Chloride Flush 3 Ml Syringe IVFLUSH 3 ml QSHIFT BUZZ Administration Labs CBC & Chem 7: 12/24/19 05:56 12/24/19 05:56 Assessment and Plan (1) Upper gastrointestinal hemorrhage: Status: Acute (2) Melena: Status: Acute (3) Elevated INR: Status: Acute (4) Orthostatic hypotension: Status: Acute (5) Liver cirrhosis: Status: Acute (6) Moderate protein-calorie malnutrition: Status: Acute Assessment and Plan: 69-year-old man admitted with GI bleed With history of alcoholic liver cirrhosis with varices. patient is a DNR / DNI. He reported that he is willing to have a blood transfusion however , he does not want any aggressive treatment including transfer/ admission to the ICU for pressors or intubation. upper GI bleed. Patient with history alcoholic liver cirrhosis with gastropathy, duodenitis recently underwent upper endoscopy on 10/13/19 no active site of bleeding was noted, patient CT abdomen showed diverticulosis patient H&H dropped but repeat hematocrit improved, patient with no recurrent dark colored stool, will continue IV Protonix today and switched to by mouth PPI strongly recommend to abstain for NSAID and aspirin patient tolerating diet will repeat CBC at a.m. and if remains stable patient will be discharged home. await GI input Coagulopathy. Related to chronic liver disease INR 5.9 on admission trending down to 3.8 Received FFP and vitamin K 10mg in the ER. Will repeat vitamin K 5 mg. Hypotension/orthostatic hypotension. Chronic and stable, Continue midodrine. Hyponatremia. seems chronic related to cirrhosis, sodium improved from 131-135 . Cirrhosis of liver with gastropathy, coagulopathy and ascites discuss hospice care with patient due to other comorbidities, requiring 247 care with [facility] services ambulate only 3 times a week with PT, but patient declined hospice at this time, spoke with patient's healthcare proxy ex and discussed plan of care with her, since patient with no abdominal pain no shortness of breath with hold on paracentesis. History of atrial fibrillation. Not on anticoagulation due to GI bleed and complications. Continue on Multaq. quality assurance monitor, heart rate stable. COPD. No exacerbation. History of CHF. No exacerbation. Avoid over-hydration. Moderate Protein calorie malnutrition. continue Ensure supplement DVT prophylaxis with mechanical compression boots due to GI bleed DNR/DNI
--- NOTE | 2019-12-23 14:44 | PM.EVENT ---
Event Note Date of Service: 12/23/19 Event Note: GI consult dictated Ugi bleeding likely from gastropathy. Agree with correcting elevated INR, as this will likely stop the bleeding. Etiology of high INR unclear. EGD not likely to add much given recent EGD in Oct.
[2019-12-23] MEDS: Omeprazole 20 MG CAPSULE.DR PO (17:53)
--- NOTE | 2019-12-23 19:51 | CONS_ITS ---
DATE OF SERVICE: 12/23/2019 REFERRING PHYSICIAN: Chiara Mckeon MD REASON FOR CONSULTATION: GI bleeding. HISTORY OF PRESENT ILLNESS: The patient is a pleasant 69-year-old man with a history of cirrhosis, who was admitted to the hospital with black stool. He had used some Excedrin to help sleep by report and noticed black stool for the day before admission and day of admission. He had no complaints of abdominal pain. He did have some abdominal distention. He was evaluated in the emergency department and laboratory studies were obtained, which are reviewed. His hematocrit on admission was 31.9 and this morning, it was 25.6. Repeat hematocrit at noon time was 28.5. He had 1 black stool since admission. He was noted to have a significant elevation of his INR at 5.9 on admission and this is in the process of being corrected, that was down to 3.8 this morning. He did receive some more vitamin K since that time. He does have a history of previous GI bleeding and underwent upper endoscopy on October 12, which showed Loving's esophagus, portal hypertensive gastropathy with some oozing and no varices. He did have some duodenitis as well. He had been on anticoagulation, which was reportedly stopped and the reason for elevation of his INR is not clear. PAST MEDICAL HISTORY: 1. Cirrhosis with history of alcohol abuse, currently abstinent. 2. GI bleeding as above. 3. Diabetes. 4. Osteoarthritis. 5. BPH. 6. Atrial fibrillation. 7. COPD. CURRENT MEDICATIONS: His current medication list is reviewed in the chart. ALLERGIES: CODEINE. FAMILY HISTORY: This is reviewed and is noncontributory. SOCIAL HISTORY: There is no current tobacco, alcohol, or substance abuse. REVIEW OF SYSTEMS: SKIN: No pruritus. HEENT: Negative. CARDIOPULMONARY: He denies shortness of breath or chest pain. GASTROINTESTINAL: As above. GENITOURINARY: Negative. NEUROPSYCHIATRIC: Negative. PHYSICAL EXAMINATION: GENERAL: Shows a pleasant male, lying in bed. VITAL SIGNS: Reviewed in electronic medical record and are stable. SKIN: Anicteric. HEENT: Shows no scleral icterus. NECK: Without lymphadenopathy or thyromegaly. LUNGS: Clear. HEART: Irregular S1, S2. No murmur. ABDOMEN: Distended with bowel sounds present. There is no guarding, tenderness, or rebound. EXTREMITIES: Trace edema. LABORATORY DATA: Shows a white blood cell count of 3.1, platelet count 84. IMPRESSION: Gastrointestinal bleeding in the setting of cirrhosis. This appears consistent with GI blood loss, likely from his portal hypertensive gastropathy in the setting of an elevated INR. I would recommend aggressive correction of his INR as this will likely help stop any bleeding, endoscopy is unlikely to add much at this point, therefore, I do not think he needs upper endoscopy at this time. I would continue proton pump inhibitor and avoid NSAIDs. He does have some abdominal distention from ascites and may benefit from paracentesis. Thanks for asking me to see him. I will follow him in the hospital with you. MD ÁNGEL Garcia/LUCIO / [id number]
[2019-12-24 04:22] VITALS: BP 92/48; PULSE 68; RESP 18; TEMP 36.6; O2SAT 98
[2019-12-24] MEDS: Omeprazole 20 MG CAPSULE.DR PO (06:03)
[2019-12-24 07:03] LABS: MANUAL DIFF FLAG NO
[2019-12-24 07:17] LABS: Basophils Absolute Auto 0.1 X10*3/uL (0.0-0.2); Basophils Percent Auto 1.2 % (0-2); Eosinophils Absolute Auto 0.1 X10*3/uL (0.0-0.4); Eosinophils Percent Auto 2.7 % (0-4); Hematocrit 26.9 % (42-52); Hemoglobin 9.2 g/dl (14.0-18.0); Imm Gran Abs Auto 0.02 X10*3/uL (0.00-0.03); Imm Gran Pct Auto 0.5 % (0.0-0.4); Mean Corpuscular HGB Conc 34.2 g/dl (31.0-36.0); Mean Corpuscular Hemoglobin 32.4 pg (27.0-33.0); Mean Corpuscular Volume 94.7 fL (80-98); Mean Platelet Volume 9.1 fL (9.4-12.4); Monocytes Absolute Auto 0.4 X10*3/uL (0.1-1.2); Monocytes Percent Auto 10.9 % (2-11); Neutrophils Absolute Auto 2.5 X10*3/uL (2.0-8.3); Neutrophils Percent Auto 60.7 % (45-73); Red Blood Count 2.84 X10*6/uL (4.60-5.80); Red Cell Distribution Width 14.2 % (11.0-16.0); White Blood Count 4.1 X10*3/uL (4.8-10.8)
[2019-12-24 07:18] LABS: Prothrombin Time 36.4 SEC (10.8-13.0)
[2019-12-24 07:30] VITALS: BP 104/58; PULSE 87; RESP 20; TEMP 36.9; O2SAT 97
[2019-12-24 07:48] LABS: Anion Gap 8 (12-20); Blood Urea Nitrogen 11 mg/dL (9-16); Calcium 8.2 mg/dL (8.4-10.2); Carbon Dioxide 30 mmol/L (22-29); Chloride 99 mmol/L (96-108); Estimated Glomerular Filt Rate > 60; Glucose Random 80 mg/dL (60-115); Potassium 3.4 mmol/l (3.3-5.1); Sodium 134 mmol/L (135-145)
[2019-12-24 07:49] LABS: Platelet Count 77 X10*3/uL (160-400)
[2019-12-24 08:14] VITALS: BP 104/58; PULSE 87
[2019-12-24] MEDS: 0.9 % Sodium Chloride Flush 3 ML SYRINGE IVFLUSH (08:14)
[2019-12-24] MEDS: Dronedarone HCl 400 MG TABLET PO (08:14)
[2019-12-24] MEDS: Midodrine HCl 10 MG TABLET PO (08:14)
[2019-12-24] MEDS: Phytonadione (Vit K1) Oral 10 MG/ML AMPUL 5 MG PO (09:43)
--- NOTE | 2019-12-24 10:08 | P.DS_ITS ---
DS: Providers Provider Date of admission: 12/22/19 17:11 Primary care physician: Unknown Physician Consults: 12/22/19 15:39 Consult to Gastroenterology Stat Consulting Provider: Dami Rosas Reason for consultation: GIB Has provider been notified: Yes 12/22/19 21:55 Consult to Gastroenterology Routine Consulting Provider: Dami Rosas Reason for consultation: gi bleed Has provider been notified: No DS: Diagnosis Discharge Diagnosis (1) Upper gastrointestinal hemorrhage: Status: Acute (2) Melena: Status: Acute (3) Elevated INR: Status: Acute (4) Orthostatic hypotension: Status: Acute (5) Liver cirrhosis: Status: Acute (6) Moderate protein-calorie malnutrition: Status: Acute DS: Medications Discharge Medications Home Medications: Home Medications Medication Instructions Recorded Confirmed dronedarone 400 mg tablet 400 mg PO BID 12/15/19 12/22/19 midodrine 10 mg tablet 10 mg PO TID tab 12/15/19 12/22/19 ondansetron HCl 4 mg tablet 4 mg PO Q6H PRN 12/15/19 12/22/19 lactulose [Generlac] 20 g PO BID PRN 12/22/19 12/22/19 Previous Rx's Medication Instructions Recorded miscellaneous medical supply #1 ea 12/13/19 comp.stocking,knee,long,medium #12 ea 12/15/19 omeprazole 20 mg PO BID@0630,1630 #60 cap 12/24/19 DS: Summary Hospital Course Hospital Course: History of presenting illness 69-year-old man presented to the ER with GI bleed. He has a pretty complicated history and was discharged in October of 2019. At that time he was treated in the ICU for GI bleed and treated for hemorrhagic shock and hypoxemia. During that admission he had an urgent EGD demonstrating portal gastropathy. He was transfused multiple units of FFP and packed red blood cells. He developed hypoxemia secondary to fluid overload and continued to have bright red blood per rectum. He was intubated emergently and bleeding scan obtained was negative. At some point during the hospitalization patient's status was changed to comfort measures only however he seemed to do better and expressed that he will add like to be DNR/ DNI instead of REGISTERED NURSE OBSTETRICS therefore it was reversed. He was taken off of anticoagulation because of the GI bleed however continued on Multaq. It was presumed that he had a lower GI bleed at that time his family was not interested in any type of intervention. His acute respiratory failure resolved after being diuresed and his lactulose was restarted and his hepatic encephalopathy improved. Today, he is presenting with several episodes of black stools. He reports that he may have took some Excedrin for sleep yesterday. He denies alcohol use. He denies chest pain, shortness of breath, nausea, vomiting, diarrhea at this time. Hemoglobin no was noted to be 10.9, hematocrit 31.9, platelets a 110, INR 5.9. He received FFP he has and vitamin K in the ER. He was started on IV Protonix. He will be adm itted for further management and treatment of GI bleed. Hospital course 69-year-old man admitted with GI bleed With history of alcoholic liver cirrhosis with varices. patient is a DNR / DNI. He reported that he is willing to have a blood transfusion however , he does not want any aggressive treatment including transfer/ admission to the ICU for pressors or intubation. upper GI bleed likely related to gastropathy, elevated INR with history of alcoholic liver cirrhosis recently underwent endoscopy on 10/13/19 that showed gastropathy, duodenitis and no active site of bleeding was noted, patient CT abdomen showed diverticulosis, patient was admitted to intermediate care unit was placed on IV fluids IV Protonix, vitamin K and fresh frozen plasma, patient hematocrit remains stable and did not require blood transfusion patient was subsequently placed on diet that he is tolerating fairly well patient was evaluated by Dr. Barbosa from Gastroenterology and he agreed with above management, patient INR has improved to 3 he has had no further bouts of melena, patient has been strongly advised to abstain from use of aspirin NSAIDs alcohol and smoking patient has been placed on by mouth PPI and is being discharged home with VNA services Coagulopathy. Related to chronic liver disease INR 5.9 on admission trending down to 3 Received FFP and vitamin K Hypotension/orthostatic hypotension. Chronic and stable, Continue midodrine. Hyponatremia. seems chronic related to cirrhosis, sodium improved from 131-135 . Cirrhosis of liver with gastropathy, coagulopathy and ascites discuss hospice care with patient due to other comorbidities, requiring 247 care with [facility] services ambulate only 3 times a week with PT, but patient declined hospice at this time, spoke with patient's healthcare proxy ex and discussed plan of care with her, since patient with no abdominal pain , elevated INR,no shortness of breath with hold on paracentesis. recommend to have close outpatient follow- up with Gastroenterology in . History of atrial fibrillation. Not on anticoagulation due to GI bleed and complications. Continue on Multaq. COPD. No exacerbation. History of CHF. No exacerbation. Moderate Protein calorie malnutrition. Recommend Ensure supplement Time Spent with Patient Time attestation: Total time spent providing and/or coordinating discharge services: Physical Exam Vital Signs: Vital Signs: Last Vital Signs Temp 98.4 F 12/24/19 07:30 Pulse 87 12/24/19 08:14 Resp 20 12/24/19 07:30 BP 104/58 L 12/24/19 08:14 Pulse Ox 97 12/24/19 07:30 Body Mass Index 23.2 General patient resting comfortably in no acute distress. Neck is supple no JVD. CVS regular rate rhythm, Respiratory lungs clear to auscultation, no respiratory distress, Gastrointestinal abdomen soft, distended, nontender, bowel sounds audible Extremities no edema. Neuro nonfocal Skin upper extremities with ecchymosis. DS: Data Data Completed and Pending Labs on day of discharge: 12/22/19 13:57 Pantoprazole Sodium [Protonix] 40 mg IVPUSH ONCE ONE 12/22/19 13:58 ECG 12 lead EKG Stat EKG Documentation DIRECTED 12/22/19 14:00 0.9 % Sodium Chloride [Ns] 500 ml IV 500 mls/hr 0.9 % Sodium Chloride [Ns] 80 ml Pantoprazole Sodium [Protonix] 80 mg IV 8 mg/hr 12/22/19 14:11 Phytonadione (Vit K1) [Vitamin K] 10 mg 0.9 % Sodium Chloride [Ns] 50 ml IV ONCE 12/22/19 14:15 Albumin Human 25 % [Kedbumin 25 %] 100 ml IV Q1H 12/22/19 14:27 Phytonadione (Vit K1) [Vitamin K] 10 mg IV .STK-MED ONE 12/22/19 14:28 Pantoprazole Sodium [Protonix] 40 mg .ROUTE .STK-MED ONE 12/22/19 14:32 Ammonia Stat Basic Metabolic Panel Stat Complete Blood Count Auto Diff Stat Lactic Acid Stat Lipase Stat Liver Panel Stat Magnesium Stat Partial Thromboplastin Time Stat Prothrombin Time INR Stat Troponin-I High Sensitivity Stat 12/22/19 14:33 [id number] Stat 12/22/19 14:45 Fresh Frozen Plasma Stat Type and Screen Stat COVID-19 ID NOW (Grey) Stat 12/22/19 17:02 Transfer Order Routine 12/22/19 17:13 Cont. Telemetry w/Vital Sign limit Q4HR 12/22/19 Dinner Regular Diet 12/22/19 19:08 ~Lactic Acid-LAB USE ONLY Stat 12/22/19 22:19 Complete Blood Count no Diff Routine 12/22/19 23:54 diphenhydrAMINE HCL [Benadryl] 25 mg IVPUSH ONCE ONE 12/23/19 02:44 Pantoprazole Sodium [Protonix] 40 mg .ROUTE .STK-MED ONE 12/23/19 05:26 Basic Metabolic Panel DAILY@0600 Complete Blood Count Auto Diff DAILY@0600 Prothrombin Time INR DAILY@0600 12/23/19 08:25 Phytonadione (Vit K1) [Vitamin K] 5 mg 0.9 % Sodium Chloride [Ns] 50 ml IV ONCE 12/23/19 12:19 Hemoglobin and Hematocrit Routine 12/24/19 05:56 Basic Metabolic Panel Routine Complete Blood Count Auto Diff Routine Prothrombin Time INR Routine 12/24/19 08:26 Phytonadione (Vit K1) Oral [Vitamin K Oral] 5 mg PO ONCE ONE Laboratory Last Values WBC 4.1 X10*3/uL (4.8-10.8) L 12/24/19 05:56 RBC 2.84 X10*6/uL (4.60-5.80) L 12/24/19 05:56 Hgb 9.2 g/dl (14.0-18.0) L 12/24/19 05:56 Hct 26.9 % (42-52) L 12/24/19 05:56 MCV 94.7 fL (80-98) 12/24/19 05:56 MCH 32.4 pg (27.0-33.0) 12/24/19 05:56 MCHC 34.2 g/dl (31.0-36.0) 12/24/19 05:56 RDW 14.2 % (11.0-16.0) 12/24/19 05:56 Plt Count 77 X10*3/uL (160-400) L 12/24/19 05:56 MPV 9.1 fL (9.4-12.4) L 12/24/19 05:56 Immature Gran % (Auto) 0.5 % (0.0-0.4) H 12/24/19 05:56 Neut % (Auto) 60.7 % (45-73) 12/24/19 05:56 Lymph % (Auto) 24.0 % (20-40) 12/24/19 05:56 [place] % (Auto) 10.9 % (2-11) 12/24/19 05:56 Eos % (Auto) 2.7 % (0-4) 12/24/19 05:56 Baso % (Auto) 1.2 % (0-2) 12/24/19 05:56 Lymph # (Auto) 1.0 X10*3/uL (1.2-4.9) L 12/24/19 05:56 [place] # (Auto) 0.4 X10*3/uL (0.1-1.2) 12/24/19 05:56 Eos # (Auto) 0.1 X10*3/uL (0.0-0.4) 12/24/19 05:56 Baso # (Auto) 0.1 X10*3/uL (0.0-0.2) 12/24/19 05:56 Abs Immat Gran (auto) 0.02 X10*3/uL (0.00-0.03) 12/24/19 05:56 Absolute Neuts (auto) 2.5 X10*3/uL (2.0-8.3) 12/24/19 05:56 Absolute Nucleated RBC 0.000 X10*3/uL (0.0-0.012) 12/24/19 05:56 Nucleated RBC % (auto) 0.0 /100WBC (0.0-0.2) 12/24/19 05:56 PT 36.4 SEC (10.8-13.0) H D 12/24/19 05:56 INR 3.0 (0.9-1.1) H 12/24/19 05:56 APTT 58.8 SEC (24.1-38.0) H D 12/22/19 14:32 Sodium 134 mmol/L (135-145) L 12/24/19 05:56 Potassium 3.4 mmol/l (3.3-5.1) 12/24/19 05:56 Chloride 99 mmol/L (96-108) 12/24/19 05:56 Carbon Dioxide 30 mmol/L (22-29) H 12/24/19 05:56 Anion Gap 8 (12-20) L 12/24/19 05:56 BUN 11 mg/dL (9-16) 12/24/19 05:56 Creatinine 0.71 mg/dL (0.5-1.4) 12/24/19 05:56 Estim Creat Clear Calc 95.0 12/24/19 05:56 Estimated GFR > 60 12/24/19 05:56 Random Glucose 80 mg/dL (60-115) 12/24/19 05:56 Lactic Acid 2.9 mmol/L (0.5-2.0) H* 12/22/19 14:32 Lactic Acid Fup @ 2Hr 1.8 mmol/L (0.5-2.0) 12/22/19 19:08 Calcium 8.2 mg/dL (8.4-10.2) L 12/24/19 05:56 Magnesium 1.9 mg/dL (1.6-2.6) 12/22/19 14:32 Total Bilirubin 2.5 mg/dL (0.0-1.0) H 12/22/19 14:32 Direct Bilirubin 1.5 mg/dL (0.0-0.5) H 12/22/19 14:32 AST 38 U/L (5-37) H 12/22/19 14:32 ALT 16 U/L (0-40) 12/22/19 14:32 Alkaline Phosphatase 120 U/L (39-117) H 12/22/19 14:32 Ammonia 54 umol/L (13-55) 12/22/19 14:32 Troponin I High Sens < 3.5 ng/L (<3.5-35.0) 12/22/19 14:32 Total Protein 5.3 g/dL (6.5-8.0) L 12/22/19 14:32 Albumin 2.8 g/dL (3.5-5.0) L 12/22/19 14:32 Lipase 20 U/L (8-78) 12/22/19 14:32 Stool Occult Blood POS (NEG) 12/22/19 14:33 COVID-19 (JOMAR) Negative (Negative) 12/22/19 14:45 COVID-19 Clin Com See Note 12/22/19 14:45 Blood Type O Positive 12/22/19 14:45 Antibody Screen NEGATIVE 12/22/19 14:45 Preliminary micro results at discharge 12/22/19 14:45 Blood Culture - Preliminary Blood - Venous No growth after 24 hours. 12/22/19 14:32 Blood Culture - Preliminary Blood - Venous No growth after 24 hours. Discharge Plan Discharge Patient Disposition: Home Health Service Referrals: Physician,Unknown [Primary Care Provider] - Discharge Medications: New omeprazole 20 mg Capsule,Delayed Release(Dr/Ec) 20 mg PO BID@0630,1630 Qty: 60 RF: 0 Continued (DME) miscellaneous medical supply Misc See Rx Instructions .ROUTE .MEDSUPPLY Qty: 1 RF: 0 lactulose [Generlac] 10 gram/15 mL Solution 20 g PO BID PRN (Reason: Constipation) RF: 0 dronedarone 400 mg tablet 400 mg PO BID RF: 0 midodrine 10 mg tablet 10 mg PO TID RF: 0 ondansetron HCl [Zofran] 4 mg tablet 4 mg PO Q6H PRN (Reason: Nausea) RF: 0 (DME) comp.stocking,knee,long,medium Misc See Rx Instructions .ROUTE .MEDSUPPLY Qty: 12 RF: 0 Discharge Orders: Discharge Order (Routine); Ordered 12/24/19 Ordered By: Chiara Mckeon Diet: regular diet Activity on Discharge: As tolerated Visit Report Forms: Patient Portal Discharge page Care Plan Goals: avoid all NSAIDs and aspirin Health Concerns: recommended complete abstinence from alcohol and smoking, continue PT and VNA services at home Plan of Treatment: close outpatient follow-up with primary care physician and Gastroenterology.
--- NOTE | 2019-12-24 10:58 | MHC.CM.PN ---
PT TO [facility] TODAY WITH RESUMPTION OF 01/09 PRIVATE PAY CARE FROM P AND SENIOR CARE VISITS FROM [facility]. [facility] NOTIFIED VIA [employer] AND DC SUMMARY FAXED TO THEM AT [phone]. PT WILL BE TRANSPORTED VIA S
[2019-12-24 11:59] VITALS: BP 115/60; PULSE 82; RESP 20; TEMP 36.6; O2SAT 97
== END 2019-12-24 13:20 | disposition home health service (06) | DRG 378 ==
LOC: HO.ED 17:02 → HO.IMC 18:41
PROVIDERS: Emergency Medicine; Admitting Provider Hospitalist; Emergency Provider Emergency Medicine Emergency Medical Services; Visit Provider Hospitalist
DX: K92.2 Gastrointestinal hemorrhage, unspecified (principal); D68.9 Coagulation defect, unspecified; E44.0 Moderate protein-calorie malnutrition; E87.2 Acidosis; E87.1 Hypo-osmolality and hyponatremia; K76.6 Portal hypertension; N40.0 Benign prostatic hyperplasia without lower urinary tract symptoms; M19.90 Unspecified osteoarthritis, unspecified site; I48.91 Unspecified atrial fibrillation; Z68.23 Body mass index [BMI] 23.0-23.9, adult; Z20.828 Contact with and (suspected) exposure to other viral communicable diseases; R79.1 Abnormal coagulation profile; K70.31 Alcoholic cirrhosis of liver with ascites; K31.9 Disease of stomach and duodenum, unspecified; I95.1 Orthostatic hypotension; F17.210 Nicotine dependence, cigarettes, uncomplicated; Z71.6 Tobacco abuse counseling; Z88.5 Allergy status to narcotic agent; Z79.899 Other long term (current) drug therapy; Z66 Do not resuscitate; K31.89 Other diseases of stomach and duodenum
CPT/HCPCS: 36415; 36430; 80048; 80076; 82140; 82272; 83605; 83690; 83735; 84484; 85014; 85018; 85025; 85027; 85610; 85730; 86850; 86900; 86901; 87040; 87635; 93005; 96361; 96374; 96375; 96376; 99285; 99291; J1200; J3430; P9017; P9047

== ENCOUNTER 2019-12-27 13:52 | Emergency (ER) | payer OTHER, SELFPAY ==
[2019-12-27 14:40] VITALS: BP 81/47; PULSE 100; RESP 18; TEMP 36.9; O2SAT 92; BMI 23.6
--- NOTE | 2019-12-27 14:54 | ED.GENADULT ---
HPI - General Adult General Chief complaint: GI Bleed Stated complaint: BUTTOCKS BLEEDING Time Seen by Provider: 12/27/19 14:53 Source: patient Mode of arrival: wheelchair Limitations: no limitations History of Present Illness HPI narrative: Patient states that his rn critical care noticed blood when he was getting cleaned up. Patient has liver cirrhosis secondary to alcoholism. Patient with history of prior GI bleeds. Onset (ago): day(s) Location: buttocks Related Data Home Medications Medication Instructions Recorded Confirmed dronedarone 400 mg tablet 400 mg PO BID 12/15/19 12/22/19 midodrine 10 mg tablet 10 mg PO TID tab 12/15/19 12/22/19 ondansetron HCl 4 mg tablet 4 mg PO Q6H PRN 12/15/19 12/22/19 lactulose [Generlac] 20 g PO BID PRN 12/22/19 12/22/19 Previous Rx's Medication Instructions Recorded miscellaneous medical supply #1 ea 12/13/19 comp.stocking,knee,long,medium #12 ea 12/15/19 omeprazole 20 mg PO BID@0630,1630 #60 cap 12/24/19 Allergies Allergy/AdvReac Type Severity Reaction Status Date / Time codeine [CODEINE] AdvReac Intermediate GI PAIN, Verified 12/15/19 15:57 abd pain Codeine Sulfate AdvReac Mild stomach Uncoded 12/22/19 14:03 pains Review of Systems Constitutional: Constitutional: Reports no additional constitutional complaints Eyes: Eyes: Reports no additional eye complaints ENT: Denies dizziness Cardiovascular: Cardiovascular: Reports no additional cardiovascular complaints Respiratory: Respiratory: Reports as per HPI Gastrointestinal: Gastrointestinal: Reports no additional gastrointestinal complaints Musculoskeletal: Musculoskeletal: Reports no additional musculoskeletal complaints Integumentary/Breasts: Skin/Breast: Denies rash Neurologic: Reports system reviewed and no additional complaints, except as documented, Denies dizziness and Denies Sensory deficit (Neuro) Psychiatric: Psychiatric: Denies anxiety PMFSH Past Medical History Medical History (Updated 12/27/19 @ 16:41 by Gerson Posada MD) Alcohol abuse Atrial fibrillation BPH (benign prostatic hyperplasia) COPD (chronic obstructive pulmonary disease) Diabetes mellitus Dysphagia GI bleed Liver cirrhosis Muscle atrophy Osteoarthritis Family History Family History (Updated 12/22/19 @ 17:31 by Karen Covarrubias NP) Mother Cardiac disease Father Lung cancer Social History Social History (Updated 12/22/19 @ 17:32 by Karen Covarrubias NP) Household Members: Caregiver Housing: House Alcohol intake: former Smoking Status: Current every day smoker Tobacco Type: Cigarette Second Hand Smoke Exposure: No Advance Directives: No Advance Directives Information Provided: No service: Yes Current occupational status: retired Physical Exam Vital Signs: Vital Signs: Last Vital Signs Temp 98.5 F 12/27/19 14:40 Pulse 100 12/27/19 14:40 Resp 18 12/27/19 14:40 BP 81/47 L 12/27/19 14:40 Pulse Ox 92 12/27/19 14:40 Body Mass Index 23.6 Const: Other: chronically ill appearing with peripheral wasting and large ascites Orientation/consciousness: oriented to person Limitations: no limitations HENMT: Head: Yes normal to inspection Ears: external ears normal General nose exam: Normal external nose present Mouth: Normal oral and palatal mucosa present and oropharynx normal Throat: Yes posterior oropharynx normal Eyes: General: appearance normal, both eyes and all related structures Neck: Other: supple Neck: Yes normal visual inspection Chest: Chest palpation & inspection: normal inspection of the chest Resp: Auscultation: clear to auscultation bilaterally Cardio: Jugular venous distension: no JVD Rate: regular rate Rhythm: regular rhythm Heart sounds: S1 normal heart sound present and S2 normal heart sound present GI: Other: large abdomen with tense ascites Auscultation: normal bowel sounds : Other: rectal area with severe erythema and excoriation and some blood, stool is brown with no evidence of GI bleed General: Yes no CVA tenderness Back/Spine/Pelvis: Back: no CVA tenderness Skin: Other: diffuse ecchymosis Neuro: Other: diffuse extremity weakness secondary to wasting not neurologic focality General: oriented to person Cranial nerves: Yes CN's II-XII intact bilaterally Sensory Exam: No Sensory deficit (Neuro) Extrem: General: Yes normal to inspection Psych: Appearance: grossly normal Course Course Course Narrative: no evidence of GI bleed, patient with severe liver failure and endstage liver disease, gave patient 10 units of VItamin K for INR of 7.7. will dc home Medical Decision Making MDM Narrative Medical decision making narrative: liver failure elevated INR with no evidence of GI bleed. Will dc home Lab Data Result diagrams: 12/27/19 15:35 12/27/19 15:35 Labs: Lab Results 12/27/19 12/27/19 12/27/19 Range/Units 15:35 15:35 15:35 WBC 5.8 (4.8-10.8) X10*3/uL RBC 3.50 L D (4.60-5.80) X10*6/uL Hgb 11.4 L D (14.0-18.0) g/dl Hct 33.3 L D (42-52) % MCV 95.1 (80-98) fL MCH 32.6 (27.0-33.0) pg MCHC 34.2 (31.0-36.0) g/dl RDW 14.4 (11.0-16.0) % Plt Count 116 L D (160-400) X10*3/uL MPV 9.4 (9.4-12.4) fL Immature Gran % (Auto) 0.5 H (0.0-0.4) % Neut % (Auto) 66.6 (45-73) % Lymph % (Auto) 18.9 L (20-40) % [place] % (Auto) 12.7 H (2-11) % Eos % (Auto) 1.0 (0-4) % Baso % (Auto) 0.3 (0-2) % Lymph # (Auto) 1.1 L (1.2-4.9) X10*3/uL [place] # (Auto) 0.7 (0.1-1.2) X10*3/uL Eos # (Auto) 0.1 (0.0-0.4) X10*3/uL Baso # (Auto) 0.0 (0.0-0.2) X10*3/uL Abs Immat Gran (auto) 0.03 (0.00-0.03) X10*3/uL Absolute Neuts (auto) 3.9 (2.0-8.3) X10*3/uL Absolute Nucleated RBC 0.000 (0.0-0.012) X10*3/uL Nucleated RBC % (auto) 0.0 (0.0-0.2) /100WBC PT 93.1 H D (10.8-13.0) SEC INR 7.7 H* D (0.9-1.1) Sodium 131 L (135-145) mmol/L Potassium 3.5 (3.3-5.1) mmol/l Chloride 94 L (96-108) mmol/L Carbon Dioxide 24 (22-29) mmol/L Anion Gap 17 (12-20) BUN 15 (9-16) mg/dL Creatinine 0.90 (0.5-1.4) mg/dL Estim Creat Clear Calc 74.9 Estimated GFR > 60 Random Glucose 114 D (60-115) mg/dL Calcium 8.7 D (8.4-10.2) mg/dL Discharge Plan Discharge Clinical Impression: Elevated INR Liver cirrhosis Qualifiers: Hepatic cirrhosis type: alcoholic cirrhosis Ascites presence: with ascites Qualified Code(s): K70.31 - Alcoholic cirrhosis of liver with ascites Patient Disposition: Home, Self-Care Instructions: Acute Liver Failure (DC), Cirrhosis (ED) Prescriptions: No Action (DME) miscellaneous medical supply Misc See Rx Instructions .ROUTE .MEDSUPPLY Qty: 1 RF: 0 lactulose [Generlac] 10 gram/15 mL Solution 20 g PO BID PRN (Reason: Constipation) RF: 0 omeprazole 20 mg Capsule,Delayed Release(Dr/Ec) 20 mg PO BID@0630,1630 Qty: 60 RF: 0 dronedarone 400 mg tablet 400 mg PO BID RF: 0 midodrine 10 mg tablet 10 mg PO TID RF: 0 ondansetron HCl [Zofran] 4 mg tablet 4 mg PO Q6H PRN (Reason: Nausea) RF: 0 (DME) comp.stocking,knee,long,medium Misc See Rx Instructions .ROUTE .MEDSUPPLY Qty: 12 RF: 0 Referrals: Physician,Unknown [Primary Care Provider] - 2 days (must call physician for urgent follow up)
[2019-12-27 15:41] LABS: MANUAL DIFF FLAG NO
[2019-12-27 15:42] LABS: Basophils Percent Auto 0.3 % (0-2); Eosinophils Absolute Auto 0.1 X10*3/uL (0.0-0.4); Hematocrit 33.3 % (42-52); Hemoglobin 11.4 g/dl (14.0-18.0); Imm Gran Abs Auto 0.03 X10*3/uL (0.00-0.03); Imm Gran Pct Auto 0.5 % (0.0-0.4); Lymphocytes Absolute Auto 1.1 X10*3/uL (1.2-4.9); Lymphocytes Percent Auto 18.9 % (20-40); Mean Corpuscular HGB Conc 34.2 g/dl (31.0-36.0); Mean Corpuscular Hemoglobin 32.6 pg (27.0-33.0); Mean Corpuscular Volume 95.1 fL (80-98); Mean Platelet Volume 9.4 fL (9.4-12.4); Monocytes Absolute Auto 0.7 X10*3/uL (0.1-1.2); Monocytes Percent Auto 12.7 % (2-11); Neutrophils Absolute Auto 3.9 X10*3/uL (2.0-8.3); Neutrophils Percent Auto 66.6 % (45-73); Platelet Count 116 X10*3/uL (160-400); Red Cell Distribution Width 14.4 % (11.0-16.0); White Blood Count 5.8 X10*3/uL (4.8-10.8)
[2019-12-27 15:54] LABS: Prothrombin Time 93.1 SEC (10.8-13.0)
[2019-12-27 15:58] LABS: INTERNATIONAL NORM RATIO 7.7 (0.9-1.1)
[2019-12-27 16:00] VITALS: BP 95/55; PULSE 96; RESP 16; TEMP 36.7; O2SAT 98
[2019-12-27 16:12] LABS: Anion Gap 17 (12-20); Blood Urea Nitrogen 15 mg/dL (9-16); Calcium 8.7 mg/dL (8.4-10.2); Carbon Dioxide 24 mmol/L (22-29); Chloride 94 mmol/L (96-108); Creatinine Clr Calc Pharmacy 74.9; Estimated Glomerular Filt Rate > 60; Glucose Random 114 mg/dL (60-115); Potassium 3.5 mmol/l (3.3-5.1); Sodium 131 mmol/L (135-145)
[2019-12-27] MEDS: Phytonadione (Vit K1) 10 MG in 0.9 % Sodium Chloride 50 ML 51 MG IV (16:37)
[2019-12-27 17:54] VITALS: BP 92/53; PULSE 93
--- NOTE | 2019-12-27 18:09 | PC.NURSE ---
dr. manolo lynn with bp for d/c
[2019-12-27 19:35] LABS: Alanine Aminotransferase 15 U/L (0-40); Albumin Level 3.1 g/dL (3.5-5.0); Alkaline Phosphatase 111 U/L (39-117); Aspartate Amino Transferase 32 U/L (5-37); Bilirubin Direct 1.7 mg/dL (0.0-0.5); Bilirubin Total 3.4 mg/dL (0.0-1.0); Total Protein 5.7 g/dL (6.5-8.0)
== END 2019-12-27 20:09 | disposition home or self-care (01) ==
PROVIDERS: Emergency Provider Emergency Medicine
DX: K70.31 Alcoholic cirrhosis of liver with ascites (principal); K72.00 Acute and subacute hepatic failure without coma; R79.89 Other specified abnormal findings of blood chemistry; F17.210 Nicotine dependence, cigarettes, uncomplicated; Z71.6 Tobacco abuse counseling; Z79.899 Other long term (current) drug therapy
CPT/HCPCS: 36415; 80048; 80076; 85025; 85610; 96365; 99284; J3430

== ENCOUNTER 2019-12-29 17:16 | Emergency (ER) | payer OTHER, SELFPAY ==
[2019-12-29 17:35] VITALS: BP 106/66; BP 97/54; PULSE 80; PULSE 91; RESP 16; TEMP 36.8; O2SAT 95; O2SAT 96; BMI 22.7
--- NOTE | 2019-12-29 17:56 | ED_ITS ---
HPI - General Adult General Chief complaint: Altered Mental Status Stated complaint: AMS Time Seen by Provider: 12/29/19 17:39 Source: family and EMS Mode of arrival: EMS Limitations: altered mental status History of Present Illness HPI narrative: This is a 69-year-old male with a complicated past medical history including but not limited to liver cirrhosis, muscle atrophy, congestive heart failure, hypotension, GI bleed. Patient presented today with change mental status and borderline hypotension and severe distention of the abdomen due to ascites, I suspect metabolic hepatic encephalopathy, and or sepsis. I spoke with the family Erinn the daughter at phone [phone], after a lengthy conversation with her she and the family decided to place the patient on hospice service and keep the patient on [facility] and no further treatment. Since after hours will try to arrange and coordinate for hospice service from the ED. Related Data Home Medications Medication Instructions Recorded Confirmed dronedarone 400 mg tablet 400 mg PO BID 12/15/19 12/22/19 midodrine 10 mg tablet 10 mg PO TID tab 12/15/19 12/22/19 ondansetron HCl 4 mg tablet 4 mg PO Q6H PRN 12/15/19 12/22/19 lactulose [Generlac] 20 g PO BID PRN 12/22/19 12/22/19 Previous Rx's Medication Instructions Recorded miscellaneous medical supply #1 ea 12/13/19 comp.stocking,knee,long,medium #12 ea 12/15/19 omeprazole 20 mg PO BID@0630,1630 #60 cap 12/24/19 oxycodone 5 mg PO Q8H PRN #10 cap 12/29/19 Allergies Allergy/AdvReac Type Severity Reaction Status Date / Time codeine [CODEINE] AdvReac Intermediate GI PAIN, Verified 12/15/19 15:57 abd pain Codeine Sulfate AdvReac Mild stomach Uncoded 12/22/19 14:03 pains Review of Systems Review of Systems: Yes Unobtainable due to mental status PMFSH Past Medical History Medical History Alcohol abuse Atrial fibrillation BPH (benign prostatic hyperplasia) COPD (chronic obstructive pulmonary disease) Diabetes mellitus Dysphagia GI bleed Liver cirrhosis Muscle atrophy Osteoarthritis Family History Family History (Updated 12/22/19 @ 17:31 by Karen Covarrubias NP) Mother Cardiac disease Father Lung cancer Social History Social History (Updated 12/22/19 @ 17:32 by Karen Covarrubias NP) Household Members: Caregiver Housing: House Alcohol intake: unknown Smoking Status: Unknown if ever smoked Tobacco Type: Cigarette Second Hand Smoke Exposure: No Use of substances other than those prescribed or required for medical reasons: Unknown Advance Directives: No Advance Directives Information Provided: No service: Yes Current occupational status: retired Physical Exam Vital Signs: Vital Signs: Last Vital Signs Temp 98.2 F 12/29/19 17:35 Pulse 96 12/29/19 20:27 Resp 18 12/29/19 20:27 BP 101/62 12/29/19 20:27 Pulse Ox 94 12/29/19 20:27 Body Mass Index 22.7 Vital signs have been reviewed as normal and appeared to be correct. Blood pressure normal. Heart rate normal. Respiration rate normal. Temperature normal. Oxygen saturation normal. General: Patient is confused and incoherent. Cachectic Chest: CTA. Heart: S1-S2. Abdomen: Distended due to ascites with tenderness. Extremities: Normal inspection Neur0 patient is confused but oriented. Medical Decision Making MDM Narrative Medical decision making narrative: Assessment and plan. This is a 69-year-old male with complicated past medical history, with liver cirrhosis, history of GI bleed came in today with mental status change, likely secondary to metabolic hepatic encephalopathy versus sepsis. Family was discussing placing patient under hospice service, I spoke with Erinn (daughter) and Maria Luisa who has ex- (healthcare proxy), both agreed that the patient should be in hospice service and comfort measures only, after lengthy discussion family decided to stop any measures of treatment or diagnosis and just keep the patient comfortable, family requested to coordinate with hospice service, I contacted Jossy Henson at [facility] hospice service, who requested to keep the patient overnight in the ED and tomorrow morning she will send somebody to arrange for patient transportation back home and carry on with comfort measures only. Discharge Plan Discharge Clinical Impression: Comfort measures only status, Hospice care, Encephalopathy, hepatic Liver cirrhosis Qualifiers: Hepatic cirrhosis type: unspecified hepatic cirrhosis Ascites presence: with ascites Qualified Code(s): K74.60 - Unspecified cirrhosis of liver Patient Disposition: Home, Self-Care Additional Instructions: Patient under hospice care Prescriptions: New oxycodone 5 mg capsule 5 mg PO Q8H PRN (Reason: pain) Qty: 10 RF: 0 No Action (DME) miscellaneous medical supply Misc See Rx Instructions .ROUTE .MEDSUPPLY Qty: 1 RF: 0 lactulose [Generlac] 10 gram/15 mL Solution 20 g PO BID PRN (Reason: Constipation) RF: 0 omeprazole 20 mg Capsule,Delayed Release(Dr/Ec) 20 mg PO BID@0630,1630 Qty: 60 RF: 0 dronedarone 400 mg tablet 400 mg PO BID RF: 0 midodrine 10 mg tablet 10 mg PO TID RF: 0 ondansetron HCl [Zofran] 4 mg tablet 4 mg PO Q6H PRN (Reason: Nausea) RF: 0 (DME) comp.stocking,knee,long,medium Misc See Rx Instructions .ROUTE .MEDSUPPLY Qty: 12 RF: 0
[2019-12-29 19:08] VITALS: BP 103/49; PULSE 96; RESP 18; O2SAT 93
--- NOTE | 2019-12-29 20:26 | PC.NURSE ---
patient noted having sob. slight accesory muscles. o2 sat ra94%.
[2019-12-29 20:27] VITALS: BP 101/62; PULSE 96; RESP 18; O2SAT 94
[2019-12-29 21:52] LABS: Eosinophils Percent Auto 0.4 % (0-4); Hemoglobin 10.6 g/dl (14.0-18.0); MANUAL DIFF FLAG SCAN; PLT CLUMP 1; SCAN SMEAR FLAG 1
[2019-12-29 21:53] LABS: Basophils Percent Auto 0.1 % (0-2); Hematocrit 29.6 % (42-52); Imm Gran Abs Auto 0.07 X10*3/uL (0.00-0.03); Lymphocytes Absolute Auto 1.5 X10*3/uL (1.2-4.9); Lymphocytes Percent Auto 21.5 % (20-40); Mean Corpuscular HGB Conc 35.8 g/dl (31.0-36.0); Mean Corpuscular Hemoglobin 32.7 pg (27.0-33.0); Mean Corpuscular Volume 91.4 fL (80-98); Monocytes Absolute Auto 1.1 X10*3/uL (0.1-1.2); Monocytes Percent Auto 15.9 % (2-11); Neutrophils Absolute Auto 4.1 X10*3/uL (2.0-8.3); Neutrophils Percent Auto 61.1 % (45-73); Platelet Count 147 X10*3/uL (160-400); Red Blood Count 3.24 X10*6/uL (4.60-5.80); Red Cell Distribution Width 14.4 % (11.0-16.0); White Blood Count 6.8 X10*3/uL (4.8-10.8)
[2019-12-29 22:12] LABS: SLIDE REVIEW VERIFIED
[2019-12-29 22:38] LABS: COVID-19 Test Negative (Negative); IDNOW Serial# 9DD0AD1C
[2019-12-29] MEDS: Morphine Sulfate 2 MG/ML CARTRIDGE 1 MG IVPUSH (23:43)
[2019-12-30 00:06] LABS: Albumin Level 2.8 g/dL (3.5-5.0); Anion Gap 19 (12-20); Blood Urea Nitrogen 22 mg/dL (9-16); Calcium 8.1 mg/dL (8.4-10.2); Carbon Dioxide 20 mmol/L (22-29); Chloride 94 mmol/L (96-108); Creatinine Clr Calc Pharmacy 52.6; Estimated Glomerular Filt Rate 54; Glucose Random 107 mg/dL (60-115); Potassium 3.7 mmol/l (3.3-5.1); Sodium 129 mmol/L (135-145)
[2019-12-30] MEDS: Morphine Sulfate 2 MG/ML CARTRIDGE IVPUSH (01:46)
[2019-12-30 07:19] VITALS: RESP 16; O2SAT 96
[2019-12-30 08:51] VITALS: PULSE 84; RESP 14; O2SAT 96
--- NOTE | 2019-12-30 09:37 | MHC.CM.ED ---
Received case management consult from Jami VILLALOBOS. Patient came to the ER due to lethargy. Ex and daughter are requesting patient return home with hospice. Spoke with ex , Erinn via telephone. They have already spoke to [facility]. Referral made via [employer]scripts. Continue to monitor for d/c needs.
--- NOTE | 2019-12-30 10:14 | MHC.CM.ED ---
[facility] is able to accept patient today. They are requesting transportation be booked for 115pm. [facility] montalvo. Med [facility] with chart. Patient's daughter Jami Plasencia INFORMATION TECHNOLOGY COORDINATOR and Gerson RN aware. Jami will write prescriptions for the recommended hospice medications. Continue to monitor for d/c needs.
--- NOTE | 2019-12-30 11:02 | PC.NURSE ---
plan is for discharge with ems to home for hospice care pt has been resting quietly in no outward distress
[2019-12-30 12:00] VITALS: RESP 18
== END 2019-12-30 13:28 | disposition home or self-care (01) ==
PROVIDERS: Emergency Provider Emergency Medicine
DX: K72.00 Acute and subacute hepatic failure without coma (principal); K74.60 Unspecified cirrhosis of liver; R41.82 Altered mental status, unspecified; F17.210 Nicotine dependence, cigarettes, uncomplicated; Z71.6 Tobacco abuse counseling; Z79.899 Other long term (current) drug therapy
CPT/HCPCS: 36415; 80048; 82040; 84134; 85025; 87635; 96374; 96375; 96376; 99284; 99285; J2270